=== PATIENT | female | born 1970 | race Caucasian/White ===

== ENCOUNTER → 2018-04-04 10:15 | Outpatient (CLI) | payer BC, SELFPAY ==
--- NOTE | 2018-04-04 10:15 | DT_ITS ---
This patient was seen during an EMR downtime March 31, 2018 - April 07, 2018. This patient may have a combination of paper and electronic documentation or all paper documentation. All documentation is viewable within the e-chart portion of [email or web address] for each patient visit.
[2018-04-15 16:04] LABS: HPV Reflexed? NOT INDICATED
== END ==
PROVIDERS: Visit Provider Obstetrics & Gynecology
DX: Z12.4 Encounter for screening for malignant neoplasm of cervix (principal)
CPT/HCPCS: 88175; G0145

== ENCOUNTER 2018-07-02 16:37 | Emergency (ER) | payer BC, SELFPAY ==
[2018-07-02 16:38] VITALS: BP 122/83; PULSE 102; RESP 16; TEMP 37.8; O2SAT 97; BMI 22.6
--- NOTE | 2018-07-02 16:52 | EKG12_ITS ---
Test Reason : CHEST PAIN Blood Pressure : / mmHG Vent. Rate : 100 BPM Atrial Rate : 100 BPM P-R Int : 122 ms QRS Dur : 062 ms QT Int : 332 ms P-R-T Axes : 072 063 060 degrees QTc Int : 428 ms Normal sinus rhythm Nonspecific ST abnormality Abnormal ECG Confirmed by LISSETH CHOW ([id number]), primer expeditor and drier HARPREET RODRIGES ([id number]) on 07/08/2018 1:41:10 PM Referred By: ALEXX Confirmed By:LISSETH CHOW
--- NOTE | 2018-07-02 16:54 | ED.VISSUMM ---
- ER Visit Summary Date of Service: 07/02/18 Chief Complaint: Left chest pain History of Present Illness: The patient is a 48 F sudden pain left breasts 2 PM today. Denies injuries. States burning sensation. No dyspnea, nausea, vomiting. No radicular symptoms. A week ago had electric shock feeling in her left shoulder blade. There is no chest pain at that time. No recent travel, surgeries, or immobilizations. No history of PE or DVT. No history diabetes, hypertension, hypercholesterolemia. Occasional tobacco. Family history grandfather RI older age, states her aunt of RI at age of 50. No previous similar symptoms in the past. Mild urine urgency. Mild cough. Patient has history of multiple breast cysts in the past requiring drainage followed by Dr. Mason, denies any mass or lesions of breasts. Physical Examination: General: Alert and oriented ?3, no acute distress HEENT: Normocephalic, atraumatic. Moist mucosa membranes Neck: supple, nontender. Cardiovascular: Regular rate and rhythm, no murmurs. Nursing present with breast exam the left, there is no palpable nodules or tenderness that were reproducible. Respiratory: Normal breath sounds, symmetric, no distress Abdomen: Soft, nontender, nondistended Extremities: Nontender, no edema, pulses intact ?4 Neuro: no focal neurological deficits. Test Results: EKG: Sinus rate of 100, no ST changes. T-wave flattening in aVL. Chest x-ray negative. 8 hemoglobin 13.8. Troponin negative. Creatinine 0.82. Urine essentially negative. Emergency Department Course and Treatment: She was given aspirin, cardiac workup initiated. His elevated temperature check urine there is no infection. Chest x-ray negative for infection which was reviewed by myself. Reevaluate states only mild burning sensation in the chest. There is no signs of abscess or infection skin region. Discussed with patient heart pathway guideline with the patient. She understands a 2% risk. BERE score 0. Heart scores a 2. Patient follow-up as an outpatient for testing. She return if any worsening symptoms. All questions were answered. Treatment Plan: [] Disposition: Discharge Impression: 1. Acute chest pain This note was generated with Beamingation software. It may contain incorrect words, spelling, and punctuation that were not noted in review of the chart prior to signing ED Disposition - Plan for ED Patient: Disposition: Home or Assisted Living Chief Complaint: Chest Other Diagnosis: Acute chest pain Instructions: ED Chest Pain Atypical Unkn Cause Referrals: Sea Mason III, MD [Primary Care Provider] - 2 Days
[2018-07-02 16:55] VITALS: BP 88/78; PULSE 98; RESP 17
[2018-07-02] MEDS: Aspirin 81 MG TAB.CHEW 324 MG PO (17:04)
[2018-07-02 17:06] LABS: Absolute Lymphocyte Count 2.52 X10^3/ul (0.83-4.51); Absolute Neutrophil Count 4.1 X10^3/uL (2.0-7.7); Basophil# 0.05 X10^3/uL; Basophil% 0.6 % (0-1); Eosinophil# 0.47 X10^3/uL; Hematocrit 41.3 % (37-47); Hemoglobin 13.8 g/dl (12.0-15.0); Lymphocyte # 2.52 X10^3/ul (4.0); Lymphocyte % 32.2 % (19-41); Mean Corp Hgb Conc 33.4 g/gl (32-36); Mean Corpuscular Hgb 31.9 pg (27.0-32.0); Mean Corpuscular Volume 95.4 fL (81-99); Mean Platelet Vol. 10.2 fl (6.2-12.0); Monocyte# 0.64 X10^3/uL; Monocyte% 8.2 % (0-10); Neutrophil # 4.14 X10^3/uL (2.7-7.7); Neutrophil % 52.9 % (47-70); Platelet Count 325 K/mm3 (150-450); RBC Distribution Width CV 12.7 % (11.6-14.6); RBC Distribution Width SD 44.2 fl (35.1-43.9); Red Blood Count 4.33 M/mm3 (4.2-5.4); White Blood Count 7.8 K/mm3 (4.4-11.0)
[2018-07-02 17:20] LABS: Mucous, Urine 0 SEEN /hpf (<or=2+); White Blood Cells 0 SEEN /hpf (0-5)
[2018-07-02 17:22] LABS: Anion Gap 9 (5-15); BUN 12 mg/dL (7-18); BUN/Creat Ratio 14.7 RATIO (10-20); Calcium,Total 9.1 mg/dL (8.5-10.1); Chloride 106 mmol/L (98-107); Creatinine, Serum 0.82 mg/dL (0.55-1.02); EST Glomerular Filtration Rate 79 mL/min (>60); Est Glom Filt Rate - Afr Amer 95 mL/min (>60); Glucose 75 mg/dL (74-106); Potassium 3.8 mmol/L (3.5-5.1); Sodium Level 145 mmol/L (136-145)
[2018-07-02 17:24] LABS: Color, Urine Yellow (Yellow); Glucose, Dipstick Normal (Normal); Ketone-Dipstick Negative (Negative); Leukocyte Esterase-Dipstick Negative /ul (Negative); Nitrite-Dipstick Negative (Negative); Occult Blood-Urine 25 /ul (Negative); Protein-Dipstick Negative (Negative); Specific Gravity, Urine 1.015 (1.002-1.030); Urine Bilirubin Dipstick Negative (Negative); Urine Clarity Clear (Clear); Urine Urobilinogen Normal (Normal)
[2018-07-02 17:42] LABS: POSITIVE COUNT NO; POSITIVE DIFFERENTIAL NO; POSITIVE MORPHOLOGY NO
[2018-07-02 17:59] LABS: Bacteria 1+ /hpf (None Seen); Red Blood Cells-Urine 0-5 SEEN /hpf (0-5); Squamous Epithelial Cells - UA 5-10 SEEN /hpf (5-10)
[2018-07-02 18:58] VITALS: BP 98/60; PULSE 71; RESP 15
== END 2018-07-02 19:00 | disposition home or self-care (01) ==
PROVIDERS: Emergency Provider Emergency Medicine; Family Provider Family Medicine; PCP Family Medicine
DX: R07.9 Chest pain, unspecified (principal); N64.4 Mastodynia; R05 Cough; R39.15 Urgency of urination; Z72.0 Tobacco use
CPT/HCPCS: 71046; 80048; 81001; 84484; 85025; 93005; 99284; A4216

== ENCOUNTER 2018-09-01 05:40 | Day surgery (SDC) | payer BC, SELFPAY ==
[2018-08-27 17:19] LABS: Hematocrit 42.6 % (37-47); Hemoglobin 14.3 g/dl (12.0-15.0); Mean Corp Hgb Conc 33.6 g/gl (32-36); Mean Corpuscular Volume 95.3 fL (81-99); Mean Platelet Vol. 10.2 fl (6.2-12.0); Platelet Count 376 K/mm3 (150-450); RBC Distribution Width CV 12.8 % (11.6-14.6); RBC Distribution Width SD 43.7 fl (35.1-43.9); Red Blood Count 4.47 M/mm3 (4.2-5.4); White Blood Count 7.5 K/mm3 (4.4-11.0)
[2018-08-27 17:20] LABS: Scan Indicated on CBC? Y/N NO
[2018-08-27 17:30] LABS: International Normalized Ratio 0.9; Prothrombin Time (Protime)PT. 12.6 SECONDS (11.7-14.9)
[2018-08-27 17:31] LABS: Partial Thromboplast Time 27.6 Seconds (24.1-36.2)
[2018-08-27 17:47] LABS: Creatinine, Serum 0.84 mg/dL (0.55-1.02); EST Glomerular Filtration Rate 76 mL/min (>60); Est Glom Filt Rate - Afr Amer 92 mL/min (>60)
[2018-08-27 17:58] LABS: Pregnancy, Serum, hCG Quali. NEGATIVE Negative (0-9 Nonpreg)
--- NOTE | 2018-08-31 15:54 | PCM.HP.BLA ---
History and Physical Date of Admission: 09/01/18 Surgical History and Physical Date: 08/31/2018 Name: LANI ALMAZAN Age: 48 Date of : 1970 Lani Almazan, a 48 year old female 2 1 2 0 2, presents for robotic hysterectomy and bilateral salpingoophrectomy on August at 7:30. -- Menorrhaga, Low Back Pain, Pelvic Pain -- She has had three prior C/S deliveries and has had BTO. had bleeding for several weeks after her D and C. UTERUS: 8.4 x 5.7 x 5.1 cm and is retroverted. has always had back pain but for the last several months had pain down her leg around menses. This month she has had had pain that did not go away with resolution of period. She is also having epigastric pain. She has a terrible h/a with period. Back pain which began longstanding. Lani claims it started around the time of her period and has been present years. It is located in the low back. Lani characterizes it to be down leg. Severity is worsening; Associated signs and symptoms are pain down leg. MEDICATIONS HISTORY: Patient is also takin. Flonase Allergy Relief 50 mcg/actuation nasal spray,suspension, As Directed 2. hydrochlorothiazide 12.5 mg tablet, One pill by mouth once a day as needed 3. hydroxyzine HCl 25 mg tablet, One pill by mouth once a day prn 4. Vitamin D2 50,000 unit capsule, One pill by mouth once a week ALLERGIES: Compazine, Nervous rxn, Compazine and Anxiety Infections - Chicken pox Illnesses - Meniere's Dz. Accidents - no injuries of consequence Hospitalizations - Childbirth and see surgery by ; Review of Systems: GENERAL - Denies fever, or chills SKIN - Denies skin changes EYES - Denies visual changes EARS - Denies difficulty hearing NOSE - Denies nasal congestion or bleeding MOUTH - Denies sore throat or difficulty swallowing NECK - Denies pain or swelling RESPIRATORY - Denies shortness of breath or wheezing CARDIOVASCULAR - Denies palpitations or chest pain GASTROINTESTINAL - Denies nausea, vomiting, diarrhea, constipation GENITOURINARY - Denies dysuria, frequency of urination, incontinence of urine MUSCULOSKELETAL - Denies joint or muscle pain NEUROLOGICAL - Denies localized numbness or weakness PSYCHIATRIC - Denies depression or anxiety ENDOCRINE - Denies heat or cold intolerance, weight loss or gain HEMATO-IMMUNOLOGIC - Denies excesive bleeding with cuts SOCIAL HISTORY: Alcohol Use - wine Smoking - socially Diet - balanced diet. low sodium Lifestyle - moderate stress lifestyle, active lifestyle and Exercise - active work Seat Belt Use - always Employer - [employer] Job Description - [employer] Illicit Drug Use - denies use of street drugs Sexual Activity - Hours Worked - 40 hours per week Spouse-Sig Other Name - Jl Spouse-Sig Other Occupation - Patternmaker [employer] Children Name(s) - Eligio Low Control - Prior Tubal ligation FAMILY HISTORY: Family history of DM II. Maternal Grandmother: cervical cancer.....80's. MENSTRUAL HISTORY: LMP Known?- ApproximateAmount/Duration - 2-3 days, Regularity - bleeds between periods, Frequency - variable days, LMP - 08/04/18, Age Onset Menarche - 12 PAST PREGNANCIES: Total Pregnancies - 5; Full Term Pregnancies - 2; Premature - 1; Abortions, Induced - 0; Abortions, Spontaneous - 2; Ectopics - 0; Multiple Births - 0; Living Children - 2 SURGICAL HISTORY: 1. x3 ; - 2. D and C x2 ; - SAB 3. bilateral lumps removed from breasts ; Monty Mason - benign 4. bilateral foot surgery ; - 5. ear shunt replacement 10/2006 ; - 6. 03/17/2018 left leg- spindle cell skin lesion removed ; - 7. L breast cyst, drained ; Monty Mason - Cyst 8. 12-05 left ear, stent put in in place of bone ; - 9. breast cyst removal ; - 10. 06/01/2015 hysteroscopy D and C ; Kemi Kothari M.D. - 11. 12/21/2015 Dx laparoscopy ; Kemi Kothari M.D. - PHYSICAL EXAM BP- 104/72 Sitting, Right arm, regular cuff Weight- 132.75361 lbs Height- 63.75 inch BMI:22.88 CONSTITUTIONAL - well nourished, well developed, looks like stated age and in no distress HEENT - Normocephalic, atraumatic, sclerae anicteric. EOMI. NECK - no nuchal rigidity LUNGS - clear to auscultation CARDIAC - normal s1, normal s2, no s3 BREAST - no dominant masses, no tenderness, no axillary adenopathy, no nipple discharge and no skin changes ABDOMEN - no masses, no tenderness EXTREMITIES - no nuchal rigidity NEUROLOGICAL - cranial nerves 2-12 intact PSYCHIATRIC - alert, oriented to time, place, and person, mood appropriate and affect appropriate PAP SMEAR - done External Genitial Vagina - non-tender without lesions Urethra/Urethral Meatus - non-tender Bladder - non-tender Vagina - vaginal sifuentes are pink and moist without loss of rugae and no evidence of atropy Cervix - without cervical motion tenderness and has normal size and features without evident lesions Uterus - normal size, mobile and no tenderness Adnexa - clear without massess or tenderness Rectal - deferred ASSESSMENT/PLAN: Dysmenorrhea, Excessive And Frequent Menstruation With Irregular Cycle, Lower Abdominal Pain, Unspecified and Premenopausal Menorrhagia Prior D and C with secretory endometrium only Declines hormonal contraception, medical management. Wants hysterectomy Advised may have Robotic hysterectomy OR may consider open hysterectomy (DAX) as prior c section deliveries. Advised re R,B,alternatives of both. nContact Surgical informational DVD given to read and consider. Plan robotic hysterectomy. Considering OOPHORECTOMY, but ok with bilateral salpingectomy
[2018-09-01] VITALS (18 sets, daily range): BP systolic 72–99; BP diastolic 39–57; PULSE 51–97; RESP 12–16; TEMP 35.9–36.8; O2SAT 96–100; BMI 23.4
[2018-09-01] MEDS: Acetaminophen 500 MG Tablet 1000 MG PO (06:32)
[2018-09-01] MEDS: Gabapentin 600 MG Tablet PO (06:32)
[2018-09-01] MEDS: Scopolamine 1mg/72hr Patch 1 PATCH TRANSDERM. (07:00)
--- NOTE | 2018-09-01 07:30 | HYST_PTH ---
PATIENT: LANI DUARTE LOC[place] [facility] [place][id number] AGE/SX: 48/F ROOM: RE09/01/[address]: Dr. Matias Chandler MD : 1970 BED: DIS: 09/02/2018 SPEC #: [id number] RECD: 09/01/18 11:31 STATUS: CARLITOS YUANCynthia #: [id number] TAVON: 09/01/18 07:[address]: Matias Chandler DEPT: SURGICAL PATHOLOGY RECD BY: Johnathan Lara ENTERED: 09/01/18 12:04 SP TYPE: HYSTERECT OTHR DR: Dr. Sea Mason III, MD Tissues: Uterus, NOS Procedures: Surgery Specimen Level V HEADER OPERATION: Lap robotic hysterectomy, bilateral salpingectomy, ERAS PRE-OP DIAGNOSIS: Dysmenorrhea, excessive and frequent menstruation with irregular cycle, lower abdominal pain TISSUE SUBMITTED: Uterus with bilateral fallopian tubes MICROSCOPIC DIAGNOSIS Uterus, bilateral fallopian tubes and ovaries: Cervix - chronic inflammation. Endometrium - proliferative endometrium. Myometrium - focal adenomyosis. Bilateral fallopian tubes - no pathologic diagnosis. Bilateral ovaries - endometriosis. SJ:vu 09/02/18 MICROSCOPIC DESCRIPTION Slides are reviewed. GROSS DESCRIPTION Received in fixative is one container labeled with the patient's name and designated uterus with bilateral fallopian tubes. The specimen consists of a hysterectomy specimen consisting of uterus with cervix and attached bilateral fallopian tubes and ovaries. The uterus with cervix weighs 81 gm and measures 9 x 6 x 4 cm. The serosal surface is focally ragged. The ectocervical mucosa is unremarkable. The external os is circular in contour. The endocervical canal measures 3 cm in length and the endocervical mucosa is unremarkable. The triangular endometrial cavity measures 4 cm in length and up to 2.5 cm in width. The endometrium is peace, glistening without any mass lesion and measures <0.1 cm in thickness. Sections of the uterine wall do not reveal any mass lesion and measures up to 2 cm in thickness. The right fallopian tube measures 2.5 cm in length and 0.5 cm in diameter. The fimbrial end is identified. It is interrupted in the middle consistent with previous tubal occlusion. The right ovary measures 2 x 1 x 1 cm. Sections reveal a few cysts filled with clear to hemorrhagic fluid. A peace-white nodule is noted measuring 0.5 cm in greatest dimension. No tubo-ovarian adhesions are identified. The left fallopian tube measures 2.5 cm in length and 0.5 cm in diameter. It is also interrupted in the middle consistent with previous tubal occlusion. The fimbrial end is identified. Sections reveal unremarkable cut surfaces. The left ovary measures 1 x 1 x 0.6 cm. Sections reveal unremarkable cut surfaces. Sweat Band Sewer sections are submitted in ten cassettes as follows: 1 - anterior cervix, 2 - posterior cervix, 3 & 4 - anterior uterine wall, 5 & 6 - posterior uterine wall, 7 - right fallopian tube, 8 - right ovary, 9 - left fallopian tube, 10 - left ovary. The ovaries are submitted in entirety. / SJ:rg 09/01/18 TC:5 CPT: 48638
--- NOTE | 2018-09-01 07:40 | OP.PCM_ITS ---
Operative Report Date of Procedure: 09/01/18 Surgeon: Matias Chandler MD, FACOG Inside Sales Consultant: WILLARD Vallecillo Anesthesia: Jl Gomez CRNA; Solo Chandler MD Type of anesthesia: General Endotracheal Procedure: Robotic Assisted Vaginal Hysterectomy and Bilateral Salpingoophrectomy Pre-Op: Menorrhagia, Pelvic Pain Post-Op: Menorrhagia, Pelvic Pain Findings: 8 cm fibroid uterus with normal appearing tubes and ovaries bilaterally; evidence of prior tubal ligation Indication: This is a 48 year old patient who has been having problems with extremely heavy menses and severe low back pain. She has had 3 prior sections. Conservative measures have not been helpful. The patient has been counseled regarding the risks, benefits and alternatives of this procedure including the possibility of bleeding, infection, and injury to surrounding structures such as bowel bladder and all questions were answered. She understands that she may need to be on HRT for an indefinite period of time and that this procedure may not help with her pelvic pain. Procedure: Pt taken to the operating room where after induction of general anesthesia the patient was prepped and draped in the usual sterile fashion and placed on a non-slip Huggy-u-vac device. Trendendelenburg test was satisfactory. Bladder was drained of urine with a Melo catheter which was left in place. Anterior cervix grasped and cervix was dilated to about 3-4 mm. Uterus sounded to 8 cms. 0-Vicryl suture was placed at the 3:00 and 9:00 position of the cervix. A small V-care device was then placed in the uterus to allow uterine manipulation and attention was turned to the laparoscopic portion of the procedure. Ropivocaine 0.5% was injected approximately 2-3 cm superior to the umbilicus and an 8 mm robotic camera port was introduced directly with intraperitoneal placement confirmed with insufflation. 8 mm robotic side ports were introduced under direct visualization approximately 10 cm lateral and 2 cm inferior to the umbilical port. A 5 mm left upper quadrant port was introduced and airseal insufflation with CO2 was started. The above findings were noted. Robot was docked without difficulty and attention turned to the robotic portion of the procedure. Approximately 30 cc of Ropivicaine was used. Bilateral infundibulocal ligaments were ligated with 35 weiss bipolar coagulation to the level of the round ligament. The posterior aspect of the cervix was identified and then opened for about 1 cm using 25 watt monopolar cautery identifying the V-care device which had been placed vaginally. Bladder flap was opened and divided to the level of the round ligaments using monopolar cautery. Progressive bites were then ligated on each side of the cervix with 25 weiss bipolar cautery to the uterine arteries. The anterior vaginal mucosa was then entered and cervix circumscribed with monopolar cautery. Uterus and attached ovaries and tubes were then removed through the vagina. Vaginal cuff was closed first with 0-Vicryl Zafar stitches placed at each angle followed by closure of the mid-cuff with 0-Monocryl V-lock suture in two layers. Pelvis was copiously irrigated with saline and the right and left ureters montilla noted to peristalse. Robot was undocked and trocars were removed with as much gas as possible. Incisions were closed with 4-0 Monocryl subcuticular sutures and incisions covered with steri-strips and opsite dressing. The patient tolerated the procedure well and was taken to the recovery room in satisfactory condition. Sponge, instruments and needle counts were all correct. There were no apparent complications of the surgery. Cefotan 2 gms IV was given prior to the procedure. Estimated Blood Loss: Minimal Specimen to Pathology: Uterus, bilateral fallopian tubes and ovaries
--- NOTE | 2018-09-01 07:41 | DCINST_ITS ---
Discharge Diet: No Restrictions Discharge Activity: Return to Normal Activity, May Not Drive - while taking narcotic pain medications., May Shower May resume sexual activity in: 6-8 weeks Call your doctor if your incision/area has: Continuous Slow Oozing, Sudden Increased Bleeding, Increased Pain/ Swelling, Increased Redness, Foul Smelling Discharge Call your doctor if you observe: Fever of 101 or Higher, Inability to urinate, Inability to have a bowel movement, Using more than one pad per hour Allergies/Adverse Reactions: Allergies prochlorperazine edisylate [From Compazine] Adverse Reaction (Verified 08/25/18 13:13) Other prochlorperazine maleate [From Compazine] Adverse Reaction (Verified 08/25/18 13:13) Other Medications to take at Discharge Fluticasone 0.05% [Flonase Nasal [place]] 1 spray NASAL PRN PRN 06/01/15 Ergocalciferol [Vitamin D] 50,000 unit PO Q7D 08/05/17 Hydrochlorothiazide 12.5 mg PO PRN PRN 08/25/18 Hydroxyzine HCl 25 mg PO PRN PRN 08/25/18 Docusate Sodium [Colace] 100 mg PO BID PRN PRN #60 cap 09/01/18 Estradiol 1 mg PO DAILY #100 tab 09/01/18 Oxycodone [Oxyir] 5 mg PO Q6H PRN PRN 7 Days #20 tab 09/01/18 The following prescriptions were given: Oxycodone [Oxyir] 5 mg PO Q6H PRN PRN 7 Days #20 tab PRN Reason: Severe Pain () Docusate Sodium [Colace] 100 mg PO BID PRN PRN #60 cap PRN Reason: Constipation Estradiol 1 mg PO DAILY #100 tab Primary Care Physician: Sea Mason III, MD [Primary Care Provider] - Test Results: Test results from this visit will be discussed in further detail at your follow- up appointment, if applicable. Please Follow Up With: Matias Chandler MD When: 2-3 weeks
[2018-09-01] MEDS: Lidocaine/D5W 2,000 MG/250 ML IV.SOLN 2000 MG (07:59)
[2018-09-01 08:26] LABS: Bedside Glucose 90 mg/dL (70-110)
[2018-09-01] MEDS: Ropivacaine 0.5% 30 ML Vial (09:40)
[2018-09-01] MEDS: Ondansetron 4 MG/2 ML Vial IV ×2 (10:56→19:32)
[2018-09-01] MEDS: Dextrose 5%-Lactated Ringers 1,000 ML 150 ML IV ×2 (12:41→19:35)
[2018-09-01] MEDS: HYDROmorphone 0.5 MG/0.5 ML SYRINGE IV (13:01)
[2018-09-01] MEDS: Ketorolac 30 MG/ML Syringe IV ×2 (16:00→22:51)
[2018-09-01] MEDS: Enoxaparin 30 MG/0.3 ML Syringe SC (18:05)
[2018-09-01] MEDS: 0.9% NaCl Peripheral Flush Adult/Peds IV ×2 (19:32→22:51)
[2018-09-02] MEDS: Acetaminophen 500 MG Tablet 1000 MG PO ×2 (01:48→10:18)
[2018-09-02] MEDS: Dextrose 5%-Lactated Ringers 1,000 ML 150 ML IV (01:49)
[2018-09-02 01:56] VITALS: BP 93/56; PULSE 72; RESP 16; TEMP 37.4; O2SAT 96
[2018-09-02] MEDS: 0.9% NaCl Peripheral Flush Adult/Peds IV ×2 (04:03→05:36)
[2018-09-02] MEDS: Ketorolac 30 MG/ML Syringe IV (04:03)
[2018-09-02] MEDS: Docusate Sodium 100 MG Capsule PO (05:48)
[2018-09-02 06:57] LABS: Hematocrit 34.8 % (37-47); Hemoglobin 11.5 g/dl (12.0-15.0); Mean Corpuscular Hgb 32.1 pg (27.0-32.0); Mean Corpuscular Volume 97.2 fL (81-99); Mean Platelet Vol. 10.6 fl (6.2-12.0); Platelet Count 278 K/mm3 (150-450); RBC Distribution Width CV 13.1 % (11.6-14.6); RBC Distribution Width SD 44.9 fl (35.1-43.9); Red Blood Count 3.58 M/mm3 (4.2-5.4); White Blood Count 12.7 K/mm3 (4.4-11.0)
[2018-09-02 07:02] LABS: Scan Indicated on CBC? Y/N NO
[2018-09-02 07:15] LABS: Creatinine, Serum 0.72 mg/dL (0.55-1.02); EST Glomerular Filtration Rate 91 mL/min (>60); Est Glom Filt Rate - Afr Amer 110 mL/min (>60); Estimated Creatinine Clearance 77.33 ml/min
[2018-09-02] MEDS: Estrogens,Conj. 0.625 MG Tablet PO (08:11)
[2018-09-02 08:15] VITALS: BP 90/55; PULSE 75; RESP 18; TEMP 37.1; O2SAT 97
[2018-09-02 08:25] VITALS: O2SAT 95
--- NOTE | 2018-09-02 08:47 | PCM.PN.OB ---
Subjective: Patient without complaints. Tolerating diet well. Positive flatus. Pain well controlled. - Physical Exam Vital Signs Temp Pulse Resp BP Pulse Ox 98.7 F 75 18 90/55 L 95 09/02/18 08:15 09/02/18 08:15 09/02/18 08:15 09/02/18 08:15 09/02/18 08:25 Oxygen Flow Rate (L/min) 6 Oxygen Delivery Method Room Air Weight: 132 lb 7.965 oz Body Mass Index (BMI) 23.4 Intake and Output for Last 24 Hours 08/31/18 09/01/18 09/02/18 23:59 23:59 23:59 Intake Total 5376 / 5376 1003 / 1003 Output Total 1150 / 1150 2100 / 2100 Balance 4226 / 4226 -1097 / -1097 Laboratory Tests Past 24 Hrs 09/02/18 09/02/18 06:07 06:07 WBC 12.7 H RBC 3.58 L Hgb 11.5 L Hct 34.8 L MCV 97.2 MCH 32.1 H MCHC 33.0 RDW 13.1 RDW Differential 44.9 H Plt Count 278 MPV 10.6 Creatinine 0.72 Estim Creat Clear Calc 77.33 Est GFR (MDRD) Af Amer 110 Est GFR (MDRD) Non-Af 91 Wounds are clean, dry, intact. Good urine output. Hemoglobin and creatinine okay. Minimal vaginal bleeding Medical Necessity - Tobacco Use Smoking Status: Current some day smoker Tobacco Use: Cigarettes Assessment/Plan Doing well status post RAVH/BSO on postoperative day #1. Will release to home with routine instructions.
== END 2018-09-02 11:30 | disposition home or self-care (01) ==
LOC: SDC 05:41 → AC 05:41 → MS3 08:54
PROVIDERS: Family Provider Family Medicine; PCP Family Medicine; Referring Provider Obstetrics & Gynecology; Visit Provider Obstetrics & Gynecology
PROC: 0UT90ZZ Resection of Uterus, Open Approach (ICD-10-PCS; CPT 58552; principal; 2018-09-01 07:10)
DX: N72 Inflammatory disease of cervix uteri (principal); N80.0 Endometriosis of uterus; R10.2 Pelvic and perineal pain; K21.9 Gastro-esophageal reflux disease without esophagitis; F17.210 Nicotine dependence, cigarettes, uncomplicated; F41.9 Anxiety disorder, unspecified; Z79.899 Other long term (current) drug therapy; Z85.828 Personal history of other malignant neoplasm of skin; Z98.51 Tubal ligation status
CPT/HCPCS: 00840; 58552; S2900; 36415; 82565; 82962; 84703; 85027; 85610; 85730; 86850; 86900; 88307; 99406; J7050; J7120; A4216; J0330; J2405

== ENCOUNTER → 2019-09-29 11:48 | Outpatient (CLI) | payer BC, SELFPAY ==
[2019-09-29 10:45] VITALS: BMI 24.8
[2019-09-29 12:17] LABS: Erythrocyte Sedimentation Rate 6 mm/hr (0-30)
[2019-09-29 12:20] LABS: Absolute Lymphocyte Count 1.78 X10^3/uL (0.83-4.51); Absolute Neutrophil Count 5.4 X10^3/uL (2.0-7.7); Basophil# 0.05 X10^3/uL; Basophil% 0.6 % (0-1); Eosinophil# 0.24 X10^3/uL; Eosinophils% 2.9 % (0-5); Hematocrit 43.3 % (37-47); Hemoglobin 14.6 g/dL (12.0-15.0); Lymphocyte # 1.78 X10^3/ul (4.0); Lymphocyte % 21.7 % (19-41); Mean Corp Hgb Conc 33.7 g/dL (32-36); Mean Corpuscular Hgb 32.4 pg (27.0-32.0); Mean Platelet Vol. 9.9 fl (6.2-12.0); Monocyte# 0.72 X10^3/uL; Monocyte% 8.8 % (0-10); NRBC Flagged by Analyzer 0 % (0-5); Neutrophil # 5.41 X10^3/uL (2.7-7.7); Neutrophil % 65.8 % (47-70); Platelet Count 425 K/mm3 (150-450); RBC Distribution Width CV 12.9 % (11.6-14.6); RBC Distribution Width SD 46.1 fl (35.1-43.9); Red Blood Count 4.51 M/mm3 (4.2-5.4); White Blood Count 8.2 K/mm3 (4.4-11.0)
[2019-09-29 13:44] LABS: Estradiol < 11.0 pg/mL; Follicle Stimulating Hormone 98.8 mIU/mL; Free T3 3.4 pg/mL (2.18-3.98); Luteinizing Hormone 46.6 mIU/mL; Rheumatoid Factor < 10.0 IU/mL (<15); T4 Free Direct 1.04 ng/dL (0.76-1.46); Thyroid Stim Hormone (TSH) 2.83 uIU/mL (0.358-3.74)
[2019-10-02 12:10] LABS: Dopamine, Pl 38 pg/mL (0-48); Epinephrine, Pl 38 pg/mL (0-62); Norepinephrine, Pl 696 pg/mL (0-874); Testosterone, % Free 1.22 % (0.50-2.80); Testosterone, Free 0.31 ng/dL (0.10-0.85); Testosterone, Total 25 ng/dL (3-41)
[2019-10-02 15:38] LABS: Thyroid Peroxidase AB 14 IU/mL (0-34)
== END ==
PROVIDERS: Family Provider Family Medicine; PCP Family Medicine; Referring Provider Internal Medicine Endocrinology, Diabetes & Metabolism; Visit Provider Internal Medicine Endocrinology, Diabetes & Metabolism
DX: M19.90 Unspecified osteoarthritis, unspecified site (principal); R00.0 Tachycardia, unspecified; R23.2 Flushing; E55.9 Vitamin D deficiency, unspecified
CPT/HCPCS: 36415; 82306; 82384; 82533; 82670; 83001; 83002; 84402; 84403; 84439; 84443; 84481; 85025; 85652; 86038; 86376; 86431

== ENCOUNTER → 2019-11-13 16:05 | Outpatient (CLI) | payer BC, SELFPAY ==
[2019-09-29 10:45] VITALS: BMI 24.8
[2019-11-13 17:42] LABS: Progesterone Level 0.21 ng/mL (See Comment)
[2019-11-17 09:21] LABS: Sex Hormone-binding Globulin 131.7 nmol/L (17.3-125.0)
== END ==
PROVIDERS: Visit Provider Obstetrics & Gynecology
DX: N95.1 Menopausal and female climacteric states (principal)
CPT/HCPCS: 36415; 82627; 84144; 84270; 84403; 82626

== ENCOUNTER → 2019-11-17 15:44 | Outpatient (CLI) | payer BC, SELFPAY ==
[2019-09-29 10:45] VITALS: BMI 24.8
--- NOTE | 2019-11-17 15:53 | BD_ITS ---
STUDY: DUAL ENERGY X-RAY ABSORPTIOMETRY / DXA REASON FOR EXAM: Female, 49 years old. 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 COMPARISON: None. FINDINGS: Lumbar Spine (L1-L4): g/cm2 (1.070) / T-score (-0.9) / Z-score (-0.4) Findings are suggestive of normal bone density with a low fracture risk. Left Femur Total: g/cm2 (0.803) / T-score (-1.6) / Z-score (-1.1) Left Femoral Neck: g/cm2 (0.820) / T-score (-1.6) / Z-score (-0.7) Right Femur Total: g/cm2 (0.777) / T-score (-1.8) / Z-score (-1.3) Right Femoral Neck: g/cm2 (0.770) / T-score (-1.9) / Z-score (-1.1) BD/Dexa Bone Density Study IMPRESSION: The patient is considered osteopenic as outlined below according to World Shaw Organization (WHO) criteria with a moderate fracture risk. Reference Information: The T-score is the number of standard deviations above or below the standard which is normal for young adults at their peak bone mineral density. The World Health Organization (WHO) interprets the T-scores as follows: Above -1 Normal bone density Between -1 and -2.5 Osteopenia Equal to / or below -2.5 Osteoporosis As a practical clinical guideline, osteopenia may be graded as follows: Mild -1 through -1.5 Moderate -1.6 through -2.0 Severe -2.1 through -2.4 The Z-score is the number of standard deviations above or below age-matched controls. A Z-score of less than -1.5 would be considered abnormal. References: 1. NIH Osteoporosis and Related Bone Diseases http://www.osteo.org 2. International Society for Clinical Densitometry http://www.iscd.org 3. National Osteoporosis Foundation http://www.nof.org Electronically Signed: Sebastian Brewer, at 14:11 EST , Service support ,
== END ==
PROVIDERS: Family Provider Family Medicine; PCP Family Medicine; Referring Provider Internal Medicine Endocrinology, Diabetes & Metabolism; Visit Provider Internal Medicine Endocrinology, Diabetes & Metabolism
DX: Z78.0 Asymptomatic menopausal state (principal); M85.80 Other specified disorders of bone density and structure, unspecified site
CPT/HCPCS: 77080

== ENCOUNTER → 2019-12-15 08:48 | Outpatient (CLI) | payer BC, SELFPAY ==
[2019-12-11 13:52] VITALS: BMI 24.8
[2019-12-15 11:02] LABS: CRP, High Sensitivity Cardiac 1.53 mg/L; Cholesterol 221 mg/dL (200); High Density Lipoprotein 71 mg/dL; Triglycerides 65 mg/dL; Very Low Density Lipoprotein 13 mg/dL (5-40)
[2019-12-15 11:29] LABS: Free T3 3.3 pg/mL (2.18-3.98); T4 Free Direct 1.07 ng/dL (0.76-1.46)
[2019-12-16 20:07] LABS: DHEA Sulfate 177.6 ug/dL (41.2-243.7)
== END ==
PROVIDERS: Internal Medicine Endocrinology, Diabetes & Metabolism; Visit Provider Obstetrics & Gynecology
DX: Z13.6 Encounter for screening for cardiovascular disorders (principal); Z13.9 Encounter for screening, unspecified; N95.1 Menopausal and female climacteric states
CPT/HCPCS: 36415; 80061; 82627; 82670; 84402; 84439; 84481; 86141; 82626

== ENCOUNTER → 2020-04-06 11:45 | Outpatient (CLI) | payer BC, SELFPAY ==
[2019-12-11 13:52] VITALS: BMI 24.8
--- NOTE | 2020-04-06 11:47 | BI_ITS ---
MAMMOGRAPHY - BILATERAL SCREENING REASON FOR EXAM: Female, 49 years old. Routine annual screening examination. PERTINENT HISTORY: Non-contributory. Bilateral excisional breast biopsies. TECHNIQUE: Digital bilateral breast sarah (3D mammographic acquisition) in the CC and MLO projections. 2-D mediolateral oblique (MLO) and craniocaudad (CC) views of both breasts were obtained. CAD: Full Field Digital Mammography with Computer Added Detection was performed. COMPARISON: Comparison is made with prior examination dated August 16, 2017 and September 09, 2014. FINDINGS: Breast Composition: The breasts are extremely dense, which lowers the sensitivity of mammography. The previously seen dominant nodular densities in the left breast have almost completely resolved. A residual 1.5 cm by 1.5 cm well-defined nodule is seen in the upper lateral portion of the breast. Interval decrease in size of the previously seen left breast nodules as well in keeping with prior cysts. A tissue clip marker is once again seen in the medial retroareolar region of the left breast. Stable small bilateral benign-appearing axillary lymph nodes. No other significant abnormalities are identified. BI/SCREEN MAMM (CAD) W/SARAH BILAT IMPRESSION: Stable bilateral screening mammogram. Yearly follow-up mammogram recommended. (A) ASSESSMENT CATEGORY: BIRADS Category 2: Benign. A letter regarding these results will be sent to the patient by the facility within 30 days. Approximately 10% of breast cancers are not detected by mammography. A normal mammogram should not delay biopsy of a clinically suspicious abnormality. [id number] Electronically Signed: Sebastian Brewer, at 13:15 EDT , Service support ,
--- OUTSIDE RECORDS SUMMARY | 2020-08-14 11:03 | XMS RPT_ITS | CCD ---
:1970 External Reference #:[id number] Author Organization [facility] Care Team Providers Name Role Phone Jeri Mason MD Unavailable Concetta Mijares Unavailable Unavailable Nellie Seymour Unavailable Unavailable Concetta Mijares Unavailable Unavailable Allergies Reported Allergen Reaction(s) Severity Date of Onset Location prochlorperazine Mild, Mild 07-17-2017 - [facility] ([id number]) Medications Medication Name Sig Date Prescriber Location POLYETHYLENE GLYCOL GOLYTELY 227.1 GM 07-17-2017 Mora Velásquezufman [facility] Surgical 3350 / Potassium SOLR as directed [facility] ([id number]) Chloride / Sodium PEG Bicarbonate / Sodium 0645-QEV-JVSEO-NACL Chloride / sodium -NASULF [id number] sulfate Monty Mason MD GOLYTELY 227.1 GM SOLR as directed 07-17-2017 Moramoises meier [facility] PEG [facility] (4469 1) [id number] Monty Mason MD GOLYTELY 227.1 GM SOLR as directed 07-17-2017 Morayolanda meier [facility] PEG [facility] (4469 1) [id number] Monty Mason MD Problems Active Problems Category Problem Name Status Date Location Esophageal disorders Gastroesophageal reflux Active [address] [place] [address] [facility] disease [facility] (901 81) Mood disorders Mixed anxiety and Active 07-17-2017 [facility] ical depressive disorder [facility] es (15099) Unclassified Procedure carried out on Active 07-17-2017 - [facility] Surgical subject [facility] (086 29) Past or Other Problems Category Problem Name Status Date Location Abdominal pain Abdominal pain Completed 07-17-2017 - [facility] (815 26) Nonmalignant breast Cyst of breast Completed 07-17-2017 - [facility] (474 53) Other gastrointestinal Constipation Completed 07-17-2017 [facility] S urgical disorders Associates (443 40) Other gastrointestinal Abdominal bloating Completed 07-17-2017 [facility] Surgical disorders [facility] (866 64) Spondylosis; Backache Completed 07-17-2017 [facility] Surgical intervertebral disc Associ[facility] es (61459) disorders; other back problems Unclassified Encounter for other Completed 07-17-2017 [facility] Surg ical screening for Associates (98 715) malignant neoplasm of breast Results Result Name Value Range Unit Interpretation Flag Date Location progress on 2020-03 PROGRESS HNO ID: [id number] Normal 04-06-2020 [facility] Author: Sea Mason III [facility] ([id number]) Service: ? Author Type: Physician Type: Progress Notes Filed: 04/06/2020 9:55 AM Note Text: SUBJECTIVE: This is a 49 year old female that is here today for 1. anxiety on lexapro, doing well. 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 Rahul ne at home when at work. Current Outpatient Medications on File Prior to Visit Medication Sig - estradiol - REMOVE PATCH 1 Each every Saturday. - escitalopram oxalate (LEXAPRO) 10 mg tablet Take 1 tablet by mouth once daily. - hydrOXYzine HCl (ATARAX) 25 mg tablet Take 1-2 tablets by mouth every 6 hours as needed for Itching/Rash or Anxiety. - fluticasone (FLONASE) 50 mcg/actuation nasal spray Use 1 S pray in each nostril daily at bedtime. Use as directed. - CALCIUM CARB/MAGNESIUM HYDROX (ROLAIDS EXTRA STRENGTH ORAL ) Take by mouth. - aspirin 81 mg chewable tablet Take 1 tablet by mouth once daily. (Patient not taking: Reported on 04/06/2020 ) - cholecalciferol, Vitamin D3, (VITAMIN D3) 50,000 unit cap capsule Take 1 capsule by mouth as directed. Every other week. (Patient not taking: Reported on 04/06/2020 ) - ranitidine (ZANTAC) 150 mg tablet Take 150 mg by mouth twi ce daily. No current facility-administered medications on file prior t o visit. PAST MEDICAL HISTORY Diagnosis Date - Anxiety and depression 03/03/2015 - Arthralgia of bilateral temporomandibular joint - Hearing loss of right ear - Meniere disease 2005 R ear surgery 2004 - Vitamin D deficiency 09/07/2013 FAMILY HISTORY Problem Relation Age of Onset - other (mitral valve prolapse) Mother - None Father - Diabetes Paternal Grandmother in her 80's - None Sister - Heart Brother - other (thyroid issues) Daughter Social History Tobacco Use - Smoking status: Light Tobacco Smoker - Smokeless tobacco: Never Used - Tobacco comment: smokes once in a blue francis Substance Use Topics - Alcohol use: No - Drug use: No BP 100/71 Pulse 76 Resp 16 Wt 62.1 kg (137 lb) LMP 1 BMI 23.89 kg/m? OBJECTIVE: APPEARANCE Well appearing, alert, in no acute distress, well -hydrated, well nourished. EXTREMITIES Extremities normal, No deformities, No skin disc oloration, No edema and Normal pulses bilaterally. Appearance: well dressed well groomed, cooperative and pleas ant Behavior: good eye contact Speech: fluent and coherent Mood: euthymic Affect: appropriate Perceptions: none Thought process: goal directed Thought Content: normal Intelligence level: normal Insight: good Judgment: good ASSESSMENT: anxiety PLAN: increase lexapro 20 mg daily healthy diet and regular exercise same medications 25 min TRINI Wolff MD on 2020-04-06 CNOV Office Visit (FAMPWS) Normal 04-06-20 [facility] LANI ALMAZAN ([id number]) 1970 F [facility] Date Time Provider Department ([id number]) 04/06/20 9:20 AM SEA MASON III During your visit today, we recorded the following informati on about you: Pulse Respiration Blood pressure Weight 76/minute 16/minute 100/71 62.1 kg Sea Mason III MD 04/06/2020 9:55 AM Signed SUBJECTIVE: This is a 49 year old female that is here today for 1. anxiety on lexapro, doing well. 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 Alone at home when at work. Current Outpatient Medications on File Prior to Visit Medication Sig - estradiol - REMOVE PATCH 1 Each every Saturday. - escitalopram oxalate (LEXAPRO) 10 mg tablet Take 1 tablet by mouth once daily. - hydrOXYzine HCl (ATARAX) 2 5 mg tablet Take 1-2 tablets by mouth every 6 hours as needed for Itching/Rash or Anxiety. - fluticasone (FLONASE) 50 mcg/actuation nasal spray Use 1 S pray in each nostril daily at bedtime. Use as directed. - CALCIUM CARB/MAGNESIUM HYDROX (ROLAIDS EXTRA STRENGT H ORAL) Take by mouth. - aspirin 81 mg chewable tab let Take 1 tablet by mouth once daily. (Patient not taking: Reported on 04/06/2020 ) - cholecalciferol, Vitamin D3, (VITAMIN D3) 50,000 unit cap capsule Take 1 capsule by mouth as directed. Every other week. (Patient not taking: Reported on 04/06/2020 ) - ranitidine (ZANTAC) 150 mg tablet Take 150 mg by mouth twi ce daily. No current facility-administered medications on file prior t o visit. PAST MEDICAL HISTORY Diagnosis Date - Anxiety and depression 03/03/2015 - Arthralgia of bilateral temporomandibular joint - Hearing loss of right ear - Meniere disease 2004 R ear surgery 2004 - Vitamin D deficiency 09/07/2013 FAMILY HISTORY Problem Relation Age of Onset - other (mitral valve prolapse) Mother - None Father - Diabetes Paternal Grandmother in her 80's - None Sister - Heart Brother - other (thyroid issues) Daughter Social History Tobacco Use - Smoking status: Light Tobacco Smoker - Smokeless tobacco: Never Used - Tobacco comment: smokes once in a blue francis Substance Use Topics - Alcohol use: No - Drug use: No BP 100/71 Pulse 76 Resp 16 Wt 62.1 kg (137 lb) LMP 1 BMI 23.89 kg/m? OBJECTIVE: APPEARANCE Well appearing, alert, in no acute distress, we ll-hydrated, well nourished. EXTREMITIES Extremities norm al, No deformities, No skin discoloration, No edema and Normal pulses bilaterally. Appearance: well dressed well groomed, cooperative and pleas ant Behavior: good eye contact Speech: fluent and coherent Mood: euthymic Affect: appropriate Perceptions: none Thought process: goal directed Thought Content: normal Intelligence level: normal Insight: good Judgment: good ASSESSMENT: anxiety PLAN: increase lexapro 20 mg daily healthy diet and regular exercise same medications 25 min TRINI Wolff MD, III MD 04/06/2020 9:53 AM Signed PLAN: increase lexapro 20 mg daily healthy diet and regular exercise same medications Sea Mason III MD Referring Provider: SELF [[id number]] Allergies As of Date: 04/06/2020 Noted Allergy Reaction COMPAZINE (PROCHLORPERAZINE EDISY*07/25/2005 VICODIN (HYDROCODONE-ACETAMINOPHE*05/06/2009 11 - Vomiting Comments: GI upset Date Reviewed: 04/06/2020 Reviewed by: Kathi ([facility]) MARIBEL Hairston - Fully Assessed Reason for Visit: Anxiety [9] Primary Visit Diagnosis:Anxiety and depression [F41.9, F32.9 ] Order(s):escitalopram oxalate (LEXAPRO) 20 mg tabletTake 1 t ablet by mouth once daily.Disp: 30 tabletRfl: 11 fluticasone (FLONASE) 50 mcg/actuation nasal sprayUse 1 Spra y in each nostril daily at bedtime. Use as directed.Disp: 1 BottleRfl: 12 Prescriptions as of 04/06/2020 Sig: RX ESTROGEN - REMOVE PATCH (O* 1 Each every Saturday. FLUTICASONE PROPIONATE 50 MCG* Use 1 Clemons in each nostril d * ROLAIDS EXTRA STRENGTH ORAL Take by mouth. ESCITALOPRAM 20 MG TABLET Take 1 tablet by mouth once d* CHOLECALCIFEROL (VITAMIN D3) * Take 1 capsule by mouth as di * Patient not taking: Reported on 04/06/2020 RANITIDINE 150 MG TABLET Take 150 mg by mouth twice da* Problem List As Of Date 04/06/2020 Noted Resolved MENIERE'S DISEASE NOS [H81.09] 12/23/2008 Breast cyst [N60.09] 07/19/2009 08/23/2014 Actinic Keratoses: Premalignant AK's (Bowenoid *03/01/2012 Solar lentigines [L81.4] 03/01/2012 Melanocytic nevi of upper extremity or shoulder*03/01/2012 Melanocytic nevus of lower extremity [D22.70] 03/01/2012 Actinic skin damage [L57.8] 03/01/2012 Abnormal mammogram, unspecified [R92.8] 06/23/2012 4 Vitamin D deficiency [E55.9] 09/07/2013 Fibrocystic breast [N60.19] 09/14/2014 Anxiety and depression [F41.9, F32.9] 03/03/2015 Other instructions from your clinician: PLAN: increase lexapro 20 mg daily healthy diet and regular exercise same medications Sea Mason III MD Prescriptions ordered this encounter Disp Refills Start End ESCITALOPRAM 20 MG TABLET 30 t* 11 04/06/2020 Cmt: dose increase Route: ORAL Sig: Take 1 tablet by mouth once daily. FLUTICASONE PROPIONATE 50 MCG/ACTUAT* 1 Rajendra* 12 04/06/2020 Route: EACH NOSTRIL Sig: Use 1 Clemons in each nostril daily at bedtime. Use as di rected. Medications Discontinued During This Encounter escitalopram oxalate (LEXAPRO) 10 mg* 03/28/2020 04/06/2020 Class: Med Update Route: ORAL Sig: Take 1 tablet by mouth once daily. Disc: Dosage adjustment hydrOXYzine HCl (ATARAX) 25 mg tablet 30 t* 1 03/03/20202019 Route: ORAL Sig: Take 1-2 tablets by joseph th every 6 hours as needed for Itching/Rash or Anxiety. Disc: Course of therapy completed fluticasone (FLONASE) 50 mcg/actuati* 1 Rajendra* 12 07/04/201804/06 Route: EACH NOSTRIL Sig: Use 1 Clemons in each nostril daily at bedtime. Use as di rected. Disc: Reason for discontinue is not on file. aspirin 81 mg chewable tablet 11/03/2018 04/06/2020 Class: OTC Route: ORAL Sig: Take 1 tablet by mouth once daily. Patient not taking: Reported on 04/06/2020 Disc: Course of therapy completed Encounter Status:Closed by SEA MASON III, MD on 04/06/20 greer on 2020-03-28 YUNIORN Telephone (FAMPWS) Normal 03-28-2020 [facility] RULE,LANI Regina ([id number]) 1970 F [facility] Date Time Provider Department ([id number]) 03/28/20 SEA MASON III During your visit today, we recorded the following informati on about you: Maria D Boles CHECO 03/28/2020 11:03 AM Signed Pt calls to report that she was not sleeping well and anxiet y was high. Pt reports she had a bottle of lexapro 10 m g that Isabel Claire CNP had prescribed her and decided to try it. Pt reports it was prescribed in 2017 and at that time she did not want to take it. Pt reports she is feeling much better on lexapro 10 mg and is sleeping. Pt is asking if she can be seen in office to discuss this and to get a new rx. Pt reports she lives in [place], [place] but drives back here for appts and has a mammogram at [facility] on 04/06 @ 12:00. Pt is asking if she can be seen that day by pcp. Please review and advise. Maria D Mason III MD 03/28/2020 1:10 PM Signed Yes--I am willing to see her on that day. TRINI Wolff MD, CMA, MA 03/28/2020 1:24 PM Signed Please assist patient with scheduling an office visit on 04/06 in the morning with PCP. Thank you. JAXSON Chapman LPN 03/29/2020 9:30 AM Signed Spoke with pt. Appt scheduled. Maria D Boles LPN Allergies As of Date: 03/28/2020 Noted Allergy Reaction COMPAZINE (PROCHLORPERAZINE EDISY*07/25/2005 VICODIN (HYDROCODONE-ACETAMINOPHE*05/06/2009 11 - Vomiting Comments: GI upset Date Reviewed: 07/04/2018 Reviewed by: Felisa Calvin LPN - Fully Assessed Reason for Visit: Medication Request [138] Order(s):escitalopram oxalate (LEXAPRO) 10 mg tabletTake 1 t ablet by mouth once daily.Disp: Rfl: Prescriptions as of 03/28/2020 Sig: ESCITALOPRAM 10 MG TABLET Take 1 tablet by mouth once d* HYDROXYZINE HCL 25 MG TABLET Take 1-2 tablets by mouth jaime* ASPIRIN 81 MG CHEWABLE TABLET Take 1 tablet by mouth once d* FLUTICASONE PROPIONATE 50 MCG* Use 1 Clemons in each nostril d * CHOLECALCIFEROL (VITAMIN D3) * Take 1 capsule by mouth as di * RANITIDINE 150 MG TABLET Take 150 mg by mouth twice da* ROLAIDS EXTRA STRENGTH ORAL Take by mouth. Problem List As Of Date 03/28/2020 Noted Resolved MENIERE'S DISEASE NOS [H81.09] 12/23/2008 Breast cyst [N60.09] 07/19/2009 08/23/2014 Actinic Keratoses: Premalignant AK's (Bowenoid *03/01/2012 Solar lentigines [L81.4] 03/01/2012 Melanocytic nevi of upper extremity or shoulder*03/01/2012 Melanocytic nevus of lower extremity [D22.70] 03/01/2012 Actinic skin damage [L57.8] 03/01/2012 Abnormal mammogram, unspecified [R92.8] 06/23/2012 4 Vitamin D deficiency [E55.9] 09/07/2013 Fibrocystic breast [N60.19] 09/14/2014 Anxiety and depression [F41.9, F32.9] 03/03/2015 Prescriptions ordered this encounter Disp Refills Start End ESCITALOPRAM 10 MG TABLET 03/28/2020 Class: Med Update Route: ORAL Sig: Take 1 tablet by mouth once daily. Encounter Status:Closed by MARIA D BOLES LPN on 03/29/20 progress on 2020-02 PROGRESS HNO ID: [id number] Normal 03-03-2020 [facility] Author: Felisa Calvin LPN [place] ([id number]) Service: ? Author Type: ? Type: Progress Notes Filed: 03/03/2020 4:11 PM Note Text: PRIMARY CARE QUALITY CHECK PCC Action/FYI: Patient does mammograms through [facility] and has appt 03/28 . Advised to have report sent to PCP. Patient declines office visit at this time. Patient lives near [place] and feels she is well. Is requesti ng a refill of hydroxyzine as she has just finished her last pill. Kenan nt advised provider may not fill since last office with with Isabel singh was 2018. Patient still declines office visit. Would like rx to go to [facility] and she will edge inker uppers when she's back in [place]. Óscar l patient only if problem. Abelardojacqui Regina Calvin LPN Patient identified by name and ? Yes REASON FOR CALL: Mammogram: Yes Colonoscopy: No Patient Decision Point *Patient States No Longer Seeing this PCP: - Update with new PCP Name or NO PCP in PCP Field - If appointment is needed with PCP as they have not been se en in one year or morea Send to [facility] for scheduling. a [facility] Pool [id number] *Patient Agrees to schedule Colonoscopy: - Which location does patient prefer? o [facility] o [facility] o If patient requests other non [facility] location, p end order, document which location they would like, and route to PCP. - Does patient have a valid colonoscopy order in [facility]? No. o If yes, Inform patient a dental scheduler will call them, route e ncounter to the [facility] Pool #[id number] with clear message that order is in place and patient needs scheduled. o If No: - Pend order for colonoscopy only (screening or diagnostic) (if at [facility]) and route to PCP provider o [facility] ? Pend colonoscopy order only. The [facility] will pend order for appropriate prep. o [facility] ? Only order colonoscopy screening / diagnos tic. Endoscopist will order the prep. - Inform patient: ?You will [facility] a dental scheduler [facility]. If you do not hear from a dental scheduler in 1 week, please contac t our office to let us know? by calling [phone]. *Patient States they have had colonoscopy at another non- location: - Ask patient to call that health care provider to have dafne rds released to [facility] OR - Patients may go to [facility].org and click on medica l records to release records from other facilities. *Patient Refuses Colonoscopy: - ?The other option is to complete a stool test at home call ed the IFOBT test-which would be done yearly or Cologuard test-which woul d be done every 3 years. We can mail you this test, you will complete it at home, and mail it back in the provided mailing envelope. Your PCP will contact you with the results.? o Patient Agrees a ? IFOBT- We will pend an order for your PCP to review and ap prove- Once approved we will mail the iFOBT test to you. You will comple te this test at home and mail back to us in the provided mailing envelope . Your PCP office will contact you with your results. ? Cologuard- We will pend an order for your PCP to review an d approve- Once approved the Cologuard resident programs assistant will mail your test kit to you with instructions on completing the test and the return of y our sample . We recommend that you check with your Insurance Provider reg arding coverage for this test. ? ?What date works for you to complete this test by? I will create a reminder on my calendar to check back on results? - Route encounter to PCP with pended IFOBT-Cologuard order *Patient Refuses both colonoscopy AND IFOBT -Cologuard: - Document that patient refuses both colonoscopy, IFOBT-[place] guard and/or Mammogram and route encounter to PCP to defer patient for 1 year. Leave encounter open for PCP to follow up. - Attempt to schedule an appointment with PCP to discuss HM testing. *Patient Agrees to schedule Mammogram: Patient will be scheduled with Jacob La. - Patient has current valid mammogram order in [facility] a Perfor m a three way conference call with patient on the line and connect to [facility] Scheduling at [phone] - Patient has NO current valid order a Pend order for mammog katie (screening or diagnostic) a Tell patient to call Jacob john at [phone] in 3 days to schedule appointment a route to P provider Closing: ?Thank you for your time today. As we close, I would like to review your demographic information and tell you about MyChart. MyChart is a secure health management tool that you can use to contact your doct or, request prescription renewals, access your test results, and make yo ur appointments. It is a great tool. May I launch a [employer] sig n up for you today?? Tasks to complete during phone call: o Verify PCP o Update Demographics a Phone numbers / Address / Email o Offer and Sign up Patient for Message Systemshart cnptogBox on CNPTOUTREA Patient Outreach (FAMPWS) Normal 0 03-03-2020 [facility] RULE,LANI Roman ([id number]) 1970 [place] [facility] Date Time Provider Department ([id number]) 03/03/20 [facility] your visit today, we recorded the following informati on about you: Felisa Calvin LPN 03/03/2020 4:11 PM Signed PRIMARY CARE QUALITY CHECK PCC Action/FYI: Patient does mammograms through [facility] and has ap pt 04/06/20. Advised to have report sent to PCP. Patient declines office visit at this time. Patient lives near [place] and feels she is well. Is requesting a refill of hydroxyzine as she has just finished her last pill. Patient advised provider may not fill since last office with with Isabel Claire was 2018. Patient [address] jacqui declines office visit. [facility] and she will edge inker uppers when she's back in [place]. Call patient only if problem. Felisa Calvin LPN Patient identified by name and ? Yes REASON FOR CALL: Mammogram: Yes Colonoscopy: No Patient Decision Point *Patient States No Longer Seeing this PCP: - Update with new PCP Name or NO PCP in PCP Field - If appointment is needed with PCP as they have not been seen in one year or morea Send to PSS for scheduling. regina [facility] [place] [id number] *Patient Agrees to schedule Colonoscopy: - Which location does patient prefer? o [facility] o [facility] o If patient requests other non [facility] location, pend order, document which location they would like, and route to PCP. - Does patient have a valid colonoscopy order in [facility]? No. o If yes, Inform patient a dental scheduler will call them, route encounter to the [facility] Toña l #[id number] with clear message that order is in place and patient needs scheduled. o If No: - Pend order for colonoscopy only (screening or diagnostic) (if at [facility]) and route to PCP provider o [facility] ? Pend colon oscopy order only. The appointment center will pend order for appropriate prep. o [facility] ? Only order colonoscopy screening / d iagnostic. Endoscopist will order the prep. - Inform patient: ?You will hear from a schedule r in approximately 1 week. If you do not hear from a sched uler in 1 week, please contact our office to let us know? by calling [phone]. *Patient States they have had colonoscopy at another non- location: - Ask patient to call that health care provider to have re cords released to [facility] OR - Patients may go to [email or web address].org and click on [email or web address] records to release records from other facilities. *Patient Refuses Colonoscopy: - ?The other option is to complete a stool test at home call ed the IFOBT test-which would be done yearly or Cologuard homer t-which would be done every 3 years. We can mail you this test, you will complete it at home, and mail it back in the provided mailing envelope. Your PCP will contact you with the results.? o Patient Agrees a ? IFOBT- We will pend an order for your PCP to review and ap prove- Once approved we will mail the iFOBT test to you. You will comp lete this test at home and mail back to us in the provided mailing envelope. Your PCP office will contact you with your results. ? Cologuard- We will pend an order for your PCP to review and approve- Once approved the Cologuard resident programs assistant will mail your test kit to you with instructions on completing the test and the return of your s ample . We recommend that you check with your Insurance Provider regarding coverage for this test. ? ?What date works for you to complete this test by? I will create a reminder on my calendar to check back on results? - Route encounter to PCP with pended IFOBT-Cologuard order *Patient Refuses both colonoscopy AND IFOBT -Cologuard: - Document that patient refuses both colonoscopy, IFOBT-[place] guard and/or Mammogram and route encounter to PCP to defer patient for 1 year. Leave encounter open for PCP to follow up. - Attempt to schedule an appointment with PCP to discuss HM testing. *Patient Agrees to schedule Mammogram: Patient will be scheduled with [facility]. - Patient has current valid mammogram order in [facility] a Perfor m a three way conference call with patient on the line and connect to [facility] Scheduling at [phone] - Patient has NO current valid order a Pend orde r for mammogram (screening or diagnostic) a Tell patient to call [employer] Scheduling at [phone] in 3 days to schedule appointment a route to PCP provider Closing: ?Thank you for your time today. As we close, I would like to review your demographic information and tell you abo ut [employer]. [employer] is a secure health management tool that you can use to contact your doctor, request prescription renewals, access your test results, and make you r appointments. It is a great tool. May I launch a [employer] sign up for you today?? Tasks to complete during phone call: o Verify PCP o Update Demographics a Phone numbers / Address / Email o Offer and Sign up Patient for [employer] Allergies As of Date: 03/03/2020 Noted Allergy Reaction COMPAZINE (PROCHLORPERAZINE EDISY*07/25/2005 VICODIN (HYDROCODONE-ACETAMINOPHE*05/06/2009 11 - Vomiting Comments: GI upset Date Reviewed: 07/04/2018 Reviewed by: Felisa Calvin LPN - Fully Assessed Reason for Visit: PHMA/Care Gap Outreach [[id number]] Cmt: mammogram Visit Diagnosis:Anxiety and depression [F41.9, F32.9] Order(s):hydrOXYzine HCl (ATARAX) 25 mg tabletTa ke 1-2 tablets by mouth every 6 hours as needed for Itching/Rash or Anxiety.Disp: 30 table tRfl: 1 Prescriptions as of 03/03/2020 Sig: HYDROXYZINE HCL 25 MG TABLET Take 1-2 tablets by mouth jaime* ASPIRIN 81 MG CHEWABLE TABLET Take 1 tablet by mouth once d* FLUTICASONE PROPIONATE 50 MCG* Use 1 Clemons in each nostril d * CHOLECALCIFEROL (VITAMIN D3) * Take 1 capsule by mouth as di * RANITIDINE 150 MG TABLET Take 150 mg by mouth twice da* ROLAIDS EXTRA STRENGTH ORAL Take by mouth. 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] 12/23/2008 Breast cyst [N60.09] 07/19/2009 08/23/2014 Actinic Keratoses: Premalignant AK's (Bowenoid *03/01/2012 Solar lentigines [L81.4] 03/01/2012 Melanocytic nevi of upper extremity or shoulder*03/01/2012 Melanocytic nevus of lower extremity [D22.70] 03/01/2012 Actinic skin damage [L57.8] 03/01/2012 Abnormal mammogram, unspecified [R92.8] 06/23/2012 4 Vitamin D deficiency [E55.9] 09/07/2013 Fibrocystic breast [N60.19] 09/14/2014 Anxiety and depression [F41.9, F32.9] 03/03/2015 Prescriptions ordered this encounter Disp Refills Start End HYDROXYZINE HCL 25 MG TABLET 30 t* 1 03/03/2020 Route: ORAL Sig: Take 1-2 tablets by mouth every 6 hours as needed for I tching/Rash or Anxiety. Medications Discontinued During This Encounter hydrOXYzine HCl (ATARAX) 25 mg tablet 30 t* 1 11/03/2018 020 Class: Call Rx Route: ORAL Sig: Take 1-2 tablets by joseph th every 6 hours as needed for Itching/Rash or Anxiety. Disc: Reason for discontinue is not on file. escitalopram oxalate (LEXAPRO) 10 mg* 30 t* 5 08/30/20172019 Route: ORAL Sig: Take 1 tablet by mouth once daily. Disc: Discontinued by Patient hydroCHLOROthiazide (HYDRODIURIL, ES* 60 t* 2 10/31/2018 020 Route: ORAL Sig: Take 2 tablets by mouth once daily. Disc: Course of therapy completed cephALEXin (KEFLEX) 500 mg capsule 40 c* 0 07/04/2018 03/03/2020 Class: Print RX Route: ORAL Sig: Take 2 capsules by mouth twice daily. Disc: Course of therapy completed ondansetron (ZOFRAN) 4 mg tablet 06/27/2018 03/03/2020 Class: Historical Med Sig: Disc: Course of therapy completed Omeprazole 20 mg TbEC 30 t* 2 09/03/2016 03/03/2020 Route: ORAL Sig: Take 20 mg by mouth once daily. Disc: Course of therapy completed Cosign accepted by ILEANA ROBERSON MD[[id number]] on 09/03/20 16 1:16 PM Encounter Status:Closed by SEA MASON III, MD on 03/03/20 office visit: breast cyst aspiration/ di scuss testing on 2017-08-17 Documentation of Done Invalid 08-17-2017 [facility] Surgical current medications Interpretation Code 08-17-2017 [facility] (procedure) ([id number]) Fall risk No Invalid 08-17-2017 [facility] Lazaro gical assessment Interpretation Code 7 [facility] ([id number]) Protein mass conc yes Invalid 08-17-2017 [facility] Surgical Interpretation Code 08-17-2017 [facility] ([id number]) Protein mass conc Done Invalid 08-17-2017 [facility] Surgical Interpretation Code 08-17-2017 [facility] ([id number]) Smoking cessation yes Invalid 08-17-2017 [facility] Surgical education Interpretation Code 08-17-2017 [facility] (procedure) ([id number]) Tobacco smoking Never Invalid 08-17-2017 - [facility] Surgical status [facility] Interpretation Code 08-17-20 17 [facility] ([id number]) Tobacco smoking Current every Invalid 08-17-2017 [facility] Surgical status [facility] day smoker Interpretation Code 017 [facility] ([id number]) Tobacco use [facility] Current every Invalid [address] [place] [address] Surgical day smoker Interpretation Code 7 [facility] ([id number]) office visit: ruq pain on 2017-07-17 Documentation of Done Invalid 07-17-2017 [facility] Surgical current medications Interpretation Code 07-17-2017 [facility] (procedure) ([id number]) Documentation of T Invalid 07-17-2017 [facility] Surgical current medications Interpretation Code 07-17-2017 [facility] (procedure) (51130) Fall risk No Invalid 07-17-2017 - [facility] Lazaro gical assessment Interpretation Code 7 [facility] ([id number]) Protein mass conc yes Invalid 07-17-2017 - [facility] Surgical Interpretation Code 07-17-2017 [facility] (09615) Protein mass conc Done Invalid 07-17-2017 - [facility] Surgical Interpretation Code 07-17-2017 [facility] (54310) Smoking cessation yes Invalid 07-17-2017 - [facility] Surgical education Interpretation Code 07-17-2017 [facility] (procedure) (43249) Tobacco smoking Current every Invalid 07-17-2017 - [facility] Surgical status [facility] day smoker Interpretation Code 017 [facility] ([id number]) Tobacco smoking Never Invalid 07-17-2017 - [facility] Surgical status [facility] Interpretation Code 07-17-20 17 [facility] (81688) Tobacco use [facility] Current every Invalid - [facility] Surgical day smoker Interpretation Code 7 [facility] (15865) Vital Signs Vital Sign Description Value / Unit Date Location The following section is limited to 5 en tries per type and includes entries from the following time range: 20170717 - 20170629 0. BMI (Body Mass Index) 21.09 kg/m2 07-17-2017 - 07-17-2017 [facility] ([id number]) Body Temperature 98.4 [degF] 07-17-2017 - 07-17-2017 [facility] ([id number]) BP Diastolic 73 mm[Hg] 07-17-2017 - 07-17-2017 [facility] (84276) BP Systolic 113 mm[Hg] 07-17-2017 - 07-17-2017 [facility] (49329) Height 167.64 cm 07-17-2017 - 07-17-2017 [facility] ([id number]) Pulse (Heart Rate) 90 /min 07-17-2017 - 07-17-2017 [facility] (24807) Respiratory Rate 18 /min 07-17-2017 - 07-17-2017 [facility] ([id number]) Weight 59.29 kg 07-17-2017 - 07-17-2017 [facility] ([id number]) Procedures Procedure Name Date Provider Location Fine needle aspiration 08-17-2017 - Monty Mason MD [facility] with imaging guidance 08-17-2017 ([id number]) Plan of Treatment Plan Description Date Location Appointment Appointment 08-17-2017 - [facility] Surgical 08-17-2017 [facility] (4469 1) Appointment Appointment 08-09-2017 - [facility] Surgical 08-09-2017 [facility] (4469 1) Colonoscopy Colonoscopy 07-17-2017 - [facility] Surgical 07-17-2017 [facility] (4469 1) EGD; diagnostic EGD; diagnostic 07-17-2017 - [facility] Surgical 07-17-2017 [facility] (4469 1) NM HIDA Scan with EF NM HIDA Scan with EF 07-17-2017 - [facility] Merr[facility] rgical 07-17-2017 [facility] (4469 1) Mammogram, Diagnostic, Mammogram, Diagnostic, 07-17-2017 - [facility] Surgical both breasts both breasts 07-18-2017 [facility] (4469 1) Mammogram, Screening, Mammogram, Screening, 07-17-2017 - [facility] Surgical both breasts both breasts 07-17-2017 [facility] (4469 1) US Breast(s) US Breast(s) 07-17-2017 - [facility] Surgical 07-17-2017 [facility] ([id number] 1) Appointment Appointment 07-17-2017 - [facility] Surgical 07-17-2017 [facility] (4469 1) Colonoscopy Colonoscopy 07-17-2017 - [facility] Surgical 07-17-2017 [facility] (4469 1) NM HIDA Scan with EF NM HIDA Scan with EF 07-17-2017 - [facility] rgical 07-17-2017 [facility] (4469 1) Mammogram, Diagnostic, Mammogram, Diagnostic, 07-17-2017 - [facility] Surgical both breasts both breasts 07-18-2017 [facility] (4469 1) Mammogram, Screening, Mammogram, Screening, 07-17-2017 - [facility] Surgical both breasts both breasts 07-17-2017 [facility] (4469 1) EGD; diagnostic EGD; diagnostic 07-17-2017 - [facility] Surgical 07-17-2017 [facility] (4469 1) US Breast(s) US Breast(s) 07-17-2017 - [facility] Surgical 07-17-2017 [facility] (4469 1) Summary Purpose Family History No Family History Records Found Advance Directives No Advanced Directives Records Found Additional Source Comments FOR RECORDS PERTAINING TO PATIENTS WHO ARE OR HAVE BEEN ENROLLED IN A CHEMICAL DEPENDENCY/SUBSTANCE ABUSE PROGRAM, SOME INFORMATION MAY BE OMITTED. This clinical summary was aggregated from multiple sources. Caution should be exercised in using it in the provision of clinical care. This summary normalizes information from multiple sources, and as a consequence, information in this document may materially changethe coding, format and clinical context of patient data. In addition, data may be omittedin some cases. CLINICAL DECISIONS SHOULD BE BASED ON THE PRIMARY CLINICAL RECORDS. [facility] provides no warranty or guarantee of the accuracy or completeness of information in this document. UNRECOGNIZED CONTENT PROVIDED BELOW FOR UNRECOGNIZED SECTION INFORMATION SOURCE DATE CREATED AUTHOR AUTHOR'S ORGANIZATIO N 04/06/2020 [facility] Hector lucio
== END ==
PROVIDERS: Referring Provider Obstetrics & Gynecology; Visit Provider Obstetrics & Gynecology
DX: Z12.31 Encounter for screening mammogram for malignant neoplasm of breast (principal)
CPT/HCPCS: 77063; 77067

== ENCOUNTER → 2022-05-28 | Outpatient (CLI) | payer BC, SELFPAY ==
--- NOTE | 2022-05-28 13:08 | BI_ITS ---
MAMMOGRAPHY - BILATERAL SCREENING 3-D TOMOSYNTHESIS REASON FOR EXAM: Female, 52 years old. Annual screening mammogram. PERTINENT HISTORY: History of bilateral excisional breast biopsies, left stereotactic biopsy in 07/17/2012, left breast aspirations in 2010 and 2014. TECHNIQUE: 2-D mammograms and 3-D Tomosynthesis of the breast (s) were performed. CAD was performed. COMPARISON: 04/06/2020, 08/16/2017. FINDINGS: The breast composition is heterogeneously dense that can obscure small breast masses. Stable scattered benign calcifications and lymph nodes. No dense spiculated masses or suspicious microcalcifications are identified. No architectural distortion is identified. There is no skin thickening or retraction. BI/SCRN MAMM (CAD)W/SARAH BILAT IMPRESSION: No interval change and no mammographic signs of malignancy. Routine yearly mammograms recommended. ASSESSMENT CATEGORY: BIRADS Category 2: Benign. A letter regarding these results will be sent to the patient by the facility within 30 days. FOLLOW UP RECOMMENDATION: Yearly follow up mammogram recommended. (A) Approximately 10% of breast cancers are not detected by mammography. A normal mammogram should not delay biopsy of a clinically suspicious abnormality. Electronically Signed: Matthew Oliver MD at 10:17 EDT ,
== END | disposition home or self-care (01) ==
LOC: OPBI 13:05
PROVIDERS: PCP Family Medicine; Visit Provider Family Medicine
DX: Z12.31 Encounter for screening mammogram for malignant neoplasm of breast (principal)
CPT/HCPCS: 77063; 77067

== ENCOUNTER → 2022-07-06 | Outpatient (CLI) | payer BC, SELFPAY ==
[2022-07-06 10:21] LABS: Absolute Lymphocyte Count 1.65 X10^3/uL (0.83-4.51); Absolute Neutrophil Count 3.5 X10^3/uL (2.0-7.7); Basophil# 0.07 X10^3/uL; Basophil% 1.1 % (0-1); Eosinophil# 0.45 X10^3/uL; Eosinophils% 6.9 % (0-5); Hemoglobin 13.6 g/dL (12.0-15.0); Lymphocyte # 1.65 X10^3/ul (0.83-4.51); Lymphocyte % 25.4 % (19-41); Mean Corp Hgb Conc 33.2 g/dL (32-36); Mean Corpuscular Hgb 31.7 pg (27.0-32.0); Mean Corpuscular Volume 95.6 fL (81-99); Mean Platelet Vol. 10.6 fl (6.2-12.0); Monocyte# 0.78 X10^3/uL; NRBC Flagged by Analyzer 0 % (0-5); Neutrophil # 3.53 X10^3/uL (2.7-7.7); Neutrophil % 54.3 % (47-70); Platelet Count 421 K/mm3 (150-450); RBC Distribution Width CV 12.7 % (11.6-14.6); RBC Distribution Width SD 44.6 fl (35.1-43.9); Red Blood Count 4.29 M/mm3 (4.2-5.4); White Blood Count 6.5 K/mm3 (4.4-11.0)
[2022-07-06 10:31] LABS: Erythrocyte Sedimentation Rate 6 mm/hr (0-30)
[2022-07-06 10:50] LABS: ALB/GLOB Ratio 1.2 RATIO (0.9-2.4); AST(SGOT) 15 U/L (15-37); Alanine Aminotransfer ALT/SGPT 26 U/L (13-56); Albumin, Serum 4.1 g/dL (3.2-5.0); Alkaline Phosphatase 87 U/L (45-117); Anion Gap 6 (5-15); BUN 17 mg/dL (7-18); BUN/Creat Ratio 20.5 RATIO (10-20); CPK Total, Creatine Kinase 81 U/L (26-192); CRP < 2.90 mg/L (0.0-3.0); Calcium,Total 9.3 mg/dL (8.5-10.1); Chloride 104 mmol/L (98-107); Creatinine, Serum 0.83 mg/dL (0.55-1.02); EST Glomerular Filtration Rate 76 mL/min (>60); Est Glom Filt Rate - Afr Amer 92 mL/min (>60); Globulin 3.5 g/dL (2.2-4.2); Glucose 72 mg/dL (74-106); LDH 169 U/L (84-246); Potassium 3.8 mmol/L (3.5-5.1); Protein, Total 7.6 g/dL (6.4-8.2); Sodium Level 139 mmol/L (136-145)
[2022-07-09 15:07] LABS: Endomysial Antibody IgA Positive (Negative)
[2022-07-10 15:13] LABS: Immunoglobulin A 111 mg/dL (87-352); t-Transglutaminase IgA 14 U/mL (0-3)
[2022-07-11 11:50] LABS: Pancreatic Elastase, Fecal 227 (>200)
[2022-07-12 11:09] LABS: Calprotectin, Stool <16 ug/g (0-120); Fats, Neutral Normal (.); Fats, Total Normal (.)
[2022-07-13 13:07] LABS: Alpha-1-Globulins 0.2 g/dL (0.0-0.4); Alpha-2-Globulins 0.7 g/dL (0.4-1.0); Complement C3 137 mg/dL (82-167); Cytoplasmic Ab (C-ANCA) <1:20 titer (Neg:<1:20); Immunoglobulin A 109 mg/dL (87-352); Immunoglobulin E 20 IU/mL (6-495); Immunoglobulin G 902 mg/dL (586-1602); Immunoglobulin M 33 mg/dL (26-217)
[2022-07-13 14:54] LABS: CCP IgG Antibodies 4 units (0-19); Complement CH50 > 60 U/mL (>41); Perinuclear Ab (P-ANCA) <1:20 titer (Neg:<1:20)
[2022-07-13 19:07] LABS: Anti-Centromere B Ab <0.2 AI (0.0-0.9); Anti-Chromatin <0.2 AI (0.0-0.9); Anti-Jo <0.2 AI (0.0-0.9); Anti-Scleroderma-70 AB <0.2 AI (0.0-0.9); Beef <0.10 kU/L (Class 0); Corn <0.10 kU/L (Class 0); Egg, Whole <0.10 kU/L (Class 0); Milk (Cow) <0.10 kU/L (Class 0); Peanut <0.10 kU/L (Class 0); Pork <0.10 kU/L (Class 0); RNP Ab 0.3 AI (0.0-0.9); SJOGREN'S Anti-SS-A test < 0.2 AI (0.0-0.9); SJOGREN'S Anti-SS-B test < 0.2 AI (0.0-0.9); Smith Ab <0.2 AI (0.0-0.9); Soybean <0.10 kU/L (Class 0); Wheat <0.10 kU/L (Class 0)
[2022-07-14 07:16] LABS: Anti-dsDNA Ab 1 IU/mL (0-9); Chocolate <0.10 kU/L (Class 0)
== END | disposition home or self-care (01) ==
LOC: LAB 08:57
PROVIDERS: PCP Family Medicine; Referring Provider Internal Medicine Gastroenterology; Visit Provider Internal Medicine Gastroenterology
DX: R10.9 Unspecified abdominal pain (principal); K58.9 Irritable bowel syndrome, unspecified
CPT/HCPCS: 36415; 80053; 82550; 82653; 82705; 82784; 82785; 83516; 83615; 83630; 83993; 84165; 85025; 85652; 86003; 86005; 86140; 86160; 86162; 86200; 86225; 86235; 86255; 86256; 86334

== ENCOUNTER 2022-09-11 11:25 | Day surgery (SDC) | payer BC, SELFPAY ==
[2022-09-11 12:08] VITALS: BP 99/65; PULSE 64; RESP 16; TEMP 37.1; O2SAT 99; BMI 25.5
[2022-09-11] MEDS: Lactated Ringers 1,000 ML 15 ML IV (12:12)
--- NOTE | 2022-09-11 12:45 | EGD_PTH ---
PATIENT: LANI DUARTE LOC: EN U#:[id number] AGE/SX: 52/F ROOM: RE09/11/[address]: Dr. Srini Freitas DO : 1970 BED: DIS: 09/11/2022 SPEC #: [id number] RECD: 09/11/22 14:30 STATUS: CARLITOS MARGARITA #: [id number] TAVON: 09/11/22 12:[address]: Srini Freitas DEPT: SURGICAL PATHOLOGY RECD BY: Nessa Johansen ENTERED: 09/12/22 11:38 SP TYPE: EGD BIOPSY OT DR: Dr. Arian Dallas MD Tissues: A - Duodenum, NOS B - Esophagus, NOS C - Ileum, NOS Procedures: Special Stain Group II Surgery Specimen Level IV Alcian Blue/PAS (control) HEADER OPERATION: Colonoscopy, EGD (MAC), biopsies PRE-OP DIAGNOSIS: Dysphagia, abdominal pain, constipation TISSUE SUBMITTED: A. Duodenum biopsy, B. Distal esophagus biopsy, C. Terminal ileum biopsy MICROSCOPIC DIAGNOSIS A. Duodenum biopsy: Fragments of duodenal mucosa, no pathologic diagnosis. B. Distal esophagus biopsy: Fragments of gastroesophageal mucosa with chronic inflammation. Intestinal metaplasia (goblet cell metaplasia) not identified. See comment. C. Terminal ileum biopsy: Fragments of small intestinal mucosa, no pathologic diagnosis. /SJ 09/13/22 COMMENT B. Alcian blue/PAS stain with matched control supports the above diagnosis. MICROSCOPIC DESCRIPTION Slides are reviewed. GROSS DESCRIPTION Received is one container labeled with the patient name and designated duodenum. The specimen consists of multiple irregular fragments of light peace soft tissue that in aggregate measure 0.6 x 0.6 x 0.1 cm. The specimen is totally submitted in one cassette. Received is one container labeled with the patient name and designated distal esophgaus. The specimen consists of multiple irregular fragments of light peace soft tissue that in aggregate measure 1 x 0.3 x 0.1 cm. The specimen is totally submitted in one cassette. Received is one container labeled with the patient name and designated terminal ileum. The specimen consists of multiple irregular fragments of light peace soft tissue that in aggregate measure 1.5 x 0.3 x 0.1 cm. The specimen is totally submitted in one cassette. /RAVI:robb 09/12/2022 TC:3 CPT:84254 x3, 50311
--- NOTE | 2022-09-11 12:55 | PCM.HP.BLA ---
History and Physical Date of Admission: 09/11/22 52 F who presents to the office today for Initial consult. Alexa established with this clinic 07.06.22 with referral from PCP for reflux and dysphagia and a change in bowel habit. Epigastric pain with bloating has been present for many years with increased intensity and frequency in the last year. She is unable to identify a trigger. Feels stress and anxiety are a potential trigger. A rotating massager or abdominal binder will help with the discomfort. OTC antacids are not helpful. Does not wake her from sleep. This is independent of bowels. Constipation is also a difficulty in which she will go up to two weeks without BM; uses stool softeners that are minimally helpful. When her bowels do move it is a mix of hard stools and liquid. She will then have sporadic movements. She had three pregnancies with three C-sections; two live births. History of esophageal dilation in her 30?s and was told she would need regular dilation; currently having difficulty with swallowing a couple times a month with soft foods. 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 ROS Const Constitutional: No anorexia, fatigue, fever(s), weight change or sleep problems Eyes Eyes: No change in vision ENT ENT: No abnormal hearing, difficulty swallowing, mouth lesions, tongue swelling or throat swelling Resp Respiratory: No cough or shortness of breath Cardio Cardiology: No chest pain at rest, chest pain with exertion, shortness of breath or dyspnea on exertion Gastro GI: No difficulty swallowing Genitourinary-Female: No difficulty urinating or burning urination Musc Musculoskeletal: No joint pain, joint swelling, muscle weakness or decreased muscle mass Skin Skin: No hair loss in leg, yellowing of the eye, itchy eyes, rash, skin ulcer or skin swelling Neuro Neurology: No abnormal hearing, abnormal movements, confusion, unsteady gait/balance or memory loss Psych Psychiatric: No anxiety, No confusion and No memory loss Endo Endocrine: No fatigue or weight change Aller/Imm Allergy/Immunologic: No itchy eyes, throat swelling or tongue swelling Sreedhar/Lymp Hematologic/Lymphatic: No easy bleeding, easy bruising or enlarged lymph nodes Exam Const General: cooperative and comfortable Nutritional Appearance: average body habitus and well nourished HENMT Head: normal to inspection Ears: hearing grossly normal bilaterally Nose: external nose normal Face and sinus: normal facial exam Mouth: oral mucosae normal Throat: posterior oropharynx normal Eyes General: appearance normal, both eyes and all related structures Neck Neck: normal visual inspection Chest Chest palpation & inspection: normal inspection of the chest and normal palpation of entire chest wall Resp Effort & Inspection: normal respiratory effort Auscultation: Bilateral: Clear to Auscultation Cardio Palpation: normal PMI Rate: regular rate Rhythm: regular rhythm GI Inspection: normal to inspection Auscultation: normal bowel sounds Percussion: normal to percussion Palpation: no hepatosplenomegaly Skin General: no rashes or lesions noted Neuro General: patient alert Extrem General: normal to inspection Psych Affect: normal affect Quality Reporting Tobacco Screening ([facility] 138) Smoking Status: Former smoker Assessment and Plan Assessment and Plan (1) Constipation: ?Status:?Chronic ?Plan: Chronic idiopathic constipation possibly secondary to slow transit constipation versus pelvic floor dysfunction.? She will undergo colonoscopy for evaluation of the lower GI tract.? She may also need a sits marker test and radiologic evaluation of all external structures that may be contributing to her constipation with a CT scan abdomen pelvis with p.o. and IV contrast. (2) Abdominal pain: ?Status:?Chronic ?Plan: Abdominal this time will be evaluated for possible autoimmune disease affecting her GI tract.? She is ZEKE positive 1 out of 160 in which the diameter diagnosis would be lupus erythematosus, scleroderma, Sjogren's syndrome, celiac sprue.? Biochemical work-up to follow.? She will also get biopsies and optical evaluation of her upper GI tract for any structural abnormalities.? She may also need a gastric emptying study because of the bloating and issues that she has after eating certain foods. (3) Dysphagia: ?Status:?Chronic ?Plan: The differential diagnosis for esophageal dysphagia would be diffuse esophageal spasm, eosinophilic esophagitis, hiatal hernia, esophageal stricture or esophageal ring or esophageal web in the setting of her thrombocytosis.? We will evaluate upper GI tract and perform biopsies and possible motility study manometry plus or minus barium esophagram. ? ? ? Orders: Orders CRP Today R10.9 - Unspecified abdominal pain ? LDH Today R10.9 - Unspecified abdominal pain ? Erythrocyte Sed Rate Today R10.9 - Unspecified abdominal pain ? Allergen, Rast Food Profile Today R10.9 - Unspecified abdominal pain ? ANCA Today R10.9 - Unspecified abdominal pain ? Celiac Disease Profile Today R10.9 - Unspecified abdominal pain ? Immunoglobulin E Today R10.9 - Unspecified abdominal pain ? ZEKE Comprehensive Panel Today R10.9 - Unspecified abdominal pain ? Calprotectin, Stool Today R10.9 - Unspecified abdominal pain ? Fecal Fat, Qualitative Today R10.9 - Unspecified abdominal pain ? Stool Lactoferrin/WBC Today K58.9 - Irritable bowel syndrome without diarrhea, R10.9 - Unspecified abdominal pain ? Complement C3 Today R10.9 - Unspecified abdominal pain ? Complement C4 Today R10.9 - Unspecified abdominal pain ? CCP IgG Antibodies Today R10.9 - Unspecified abdominal pain ? Complement CH50 Today R10.9 - Unspecified abdominal pain ? BRYSON + Protein Elect, Serum Today R10.9 - Unspecified abdominal pain ? Pancreatic Elastase, Fecal Today R10.9 - Unspecified abdominal pain ? Comprehensive Metabolic Profil Today K59.00 - Constipation, unspecified, R10.9 - Unspecified abdominal pain, R13.10 - Dysphagia, unspecified ? CPK Total, Creatine Kinase Today K59.00 - Constipation, unspecified, R10.9 - Unspecified abdominal pain, R13.10 - Dysphagia, unspecified ? CBC W/Diff, Automated Today K59.00 - Constipation, unspecified, R10.9 - Unspecified abdominal pain, R13.10 - Dysphagia, unspecified ? I have examined the patient and the H&P has been reviewed. There are no clinical changes since date of exam.
[2022-09-11 13:35] VITALS: BP 96/58; BP 99/65; PULSE 60; RESP 16; TEMP 36.3; O2SAT 96
[2022-09-11 13:40] VITALS: BP 86/65; BP 99/65; PULSE 59; RESP 14; O2SAT 97
--- NOTE | 2022-09-11 13:40 | OP.CCLET_ITS ---
09/11/2022 Arian Dallas Re : Upper GI endoscopy procedure for Alexa Almazan Dear Celena This procedure was performed on Sunday, September 11, 2022. My impressions and recommendations are as follows: Impressions : - Non-severe reflux esophagitis. Biopsied. - Small hiatal hernia. - Chronic duodenitis. Biopsied. Recommendations : - Discharge patient to home. - Resume previous diet. - Continue present medications. - Await pathology results. My findings are described in the full procedure note, which is enclosed. If I can be of further assistance, please feel free to contact me at . Sincerely, Srini Freitas, 09/11/2022 1:40:07 PM This report has been signed electronically.
--- NOTE | 2022-09-11 13:40 | OP.EGD_ITS ---
Patient Name: Alexa Almazan Procedure Date: 09/11/2022 12:57 PM Date of : 1970 Age: 52 Procedure: Upper GI endoscopy Indications: Epigastric abdominal pain Providers: Srini Freitas DO Medicines: Monitored Anesthesia Care Patient Profile: This is a 52 year old female. Refer to note in patient chart for documentation of history and physical. Patient has symptoms of chronic abdominal cramping and chronic global abdominal pain. Complications: No immediate complications. Procedure: Pre-Anesthesia Assessment: - Prior to the procedure, a History and Physical was performed, and patient medications and allergies were reviewed. The patient is competent. The risks and benefits of the procedure and the sedation options and risks were discussed with the patient. All questions were answered and informed consent was obtained. Patient identification and proposed procedure were verified by the physician in the pre-procedure area. Mental Status Examination: alert and oriented. Airway Examination: normal oropharyngeal airway and neck mobility. Respiratory Examination: clear to auscultation. CV Examination: normal. Prophylactic Antibiotics: The patient does not require prophylactic antibiotics. Prior Anticoagulants: The patient has taken no previous anticoagulant or antiplatelet agents. ASA Grade Assessment: II - A patient with mild systemic disease. After reviewing the risks and benefits, the patient was deemed in satisfactory condition to undergo the procedure. The anesthesia plan was to use monitored anesthesia care (MAC). Immediately prior to administration of medications, the patient was re-assessed for adequacy to receive sedatives. The heart rate, respiratory rate, oxygen saturations, blood pressure, adequacy of pulmonary ventilation, and response to care were monitored throughout the procedure. The physical status of the patient was re-assessed after the procedure. After obtaining informed consent, the endoscope was passed under direct vision. Throughout the procedure, the patient's blood pressure, pulse, and oxygen saturations were monitored continuously. The colonoscope was introduced through the mouth, and advanced to the second part of duodenum. The upper GI endoscopy was accomplished without difficulty. The patient tolerated the procedure well. Scope In: 1:07:02 PM Scope Out: 1:13:51 PM Total Procedure Duration Time 0 hours 6 minutes 49 seconds Findings: Non-severe esophagitis with no bleeding was found 35 to 37 cm from the incisors. Biopsies were taken with a cold forceps for histology. Verification of patient identification for the specimen was done. Estimated blood loss was minimal. A small hiatal hernia was present. No other significant abnormalities were identified in a careful examination of the stomach. Diffuse moderate inflammation characterized by congestion (edema), erosions and granularity was found in the first portion of the duodenum, in the second portion of the duodenum and in the third portion of the duodenum. Biopsies were taken with a cold forceps for histology. Verification of patient identification for the specimen was done. Estimated blood loss was minimal. Impression: - Non-severe reflux esophagitis. Biopsied. - Small hiatal hernia. - Chronic duodenitis. Biopsied. Recommendation: - Discharge patient to home. - Resume previous diet. - Continue present medications. - Await pathology results. Procedure Code(s): --- Professional --- 66108, Esophagogastroduodenoscopy, flexible, transoral; with biopsy, single or multiple CPT copyright 2017 [employer]. All rights reserved. The codes documented in this report are preliminary and upon business analysis analyst review may be revised to meet current compliance requirements. Srini Freitas DO 09/11/2022 1:40:07 PM This report has been signed electronically. Number of Addenda: 0 Note Initiated On: 09/11/2022 12:57 PM
--- NOTE | 2022-09-11 13:43 | OP.COLON_ITS ---
Patient Name: Alexa Almazan Procedure Date: 09/11/2022 1:14 PM Date of : 1970 Age: 52 Procedure: Colonoscopy Indications: Abdominal pain, Generalized abdominal distress Providers: Srini Freitas DO Medicines: Monitored Anesthesia Care Patient Profile: This is a 52 year old female. Refer to note in patient chart for documentation of history and physical. Patient has symptoms of chronic abdominal cramping and chronic global abdominal pain. Last Colonoscopy: date unknown. Unable to locate last colonoscopy report. Complications: No immediate complications. Procedure: Pre-Anesthesia Assessment: - Prior to the procedure, a History and Physical was performed, and patient medications and allergies were reviewed. The patient is competent. The risks and benefits of the procedure and the sedation options and risks were discussed with the patient. All questions were answered and informed consent was obtained. Patient identification and proposed procedure were verified by the physician in the pre-procedure area. Mental Status Examination: alert and oriented. Airway Examination: normal oropharyngeal airway and neck mobility. Respiratory Examination: clear to auscultation. CV Examination: normal. Prophylactic Antibiotics: The patient does not require prophylactic antibiotics. Prior Anticoagulants: The patient has taken no previous anticoagulant or antiplatelet agents. ASA Grade Assessment: II - A patient with mild systemic disease. After reviewing the risks and benefits, the patient was deemed in satisfactory condition to undergo the procedure. The anesthesia plan was to use monitored anesthesia care (MAC). Immediately prior to administration of medications, the patient was re-assessed for adequacy to receive sedatives. The heart rate, respiratory rate, oxygen saturations, blood pressure, adequacy of pulmonary ventilation, and response to care were monitored throughout the procedure. The physical status of the patient was re-assessed after the procedure. After I obtained informed consent, the scope was passed under direct vision. Throughout the procedure, the patient's blood pressure, pulse, and oxygen saturations were monitored continuously. The colonoscope was introduced through the anus and advanced to the terminal ileum. The colonoscopy was performed without difficulty. The patient tolerated the procedure well. The quality of the bowel preparation was adequate. Scope In: 1:16:24 PM Scope Withdrawal Time 0 hours 8 minutes 44 seconds Scope Out: 1:29:20 PM Total Procedure Duration Time 0 hours 12 minutes 56 seconds Findings: The perianal and digital rectal examinations were normal. Semi-liquid stool was found in the recto-sigmoid colon, in the sigmoid colon, at the hepatic flexure and in the cecum, interfering with visualization. Fluid aspiration was performed. A patchy area of the terminal ileum was congested. Biopsies were taken with a cold forceps for histology. Verification of patient identification for the specimen was done. Estimated blood loss was minimal. Impression: - Stool in the recto-sigmoid colon, in the sigmoid colon, at the hepatic flexure and in the cecum. Fluid aspiration performed. - Congested mucosa in the terminal ileum. Biopsied. Recommendation: - Written discharge instructions were provided to the patient. - The signs and symptoms of potential delayed complications were discussed with the patient. - Patient has a contact number available for emergencies. - Return to normal activities tomorrow. - Resume previous diet. - Continue present medications. - Await pathology results. - Repeat colonoscopy in 5 years for surveillance. Procedure Code(s): --- Professional --- 92428, Colonoscopy, flexible; with biopsy, single or multiple CPT copyright 2017 [employer]. All rights reserved. 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 Srini Freitas DO 09/11/2022 1:43:11 PM This report has been signed electronically. Number of Addenda: 0 Note Initiated On: 09/11/2022 1:14 PM
--- NOTE | 2022-09-11 13:43 | OP.CCLET_ITS ---
09/11/2022 Arian Dallas Re : Colonoscopy procedure for Alexa Almazan Dear Celena This procedure was performed on Sunday, September 11, 2022. My impressions and recommendations are as follows: Impressions : - Stool in the recto-sigmoid colon, in the sigmoid colon, at the hepatic flexure and in the cecum. Fluid aspiration performed. - Congested mucosa in the terminal ileum. Biopsied. Recommendations : - Written discharge instructions were provided to the patient. - The signs and symptoms of potential delayed complications were discussed with the patient. - Patient has a contact number available for emergencies. - Return to normal activities tomorrow. - Resume previous diet. - Continue present medications. - Await pathology results. - Repeat colonoscopy in 5 years for surveillance. My findings are described in the full procedure note, which is enclosed. If I can be of further assistance, please feel free to contact me at . Sincerely, Srini Freitas, 09/11/2022 1:43:11 PM This report has been signed electronically.
[2022-09-11 13:45] VITALS: BP 82/52; BP 99/65; PULSE 57; RESP 14; O2SAT 97
[2022-09-11 13:50] VITALS: BP 87/54; BP 99/65; PULSE 66; RESP 14; TEMP 36.3; O2SAT 98
[2022-09-11 14:13] VITALS: BP 99/65
== END 2022-09-11 14:19 | disposition home or self-care (01) ==
LOC: EN 11:28 → AC 11:31
PROVIDERS: PCP Family Medicine; Referring Provider Family Medicine; Visit Provider Internal Medicine Gastroenterology
PROC: 0DJD8ZZ Inspection of Lower Intestinal Tract, Via Natural or Artificial Opening Endoscopic (ICD-10-PCS; CPT 45378; principal; 2022-09-11 12:40)
DX: R13.10 Dysphagia, unspecified (principal); M34.9 Systemic sclerosis, unspecified; M35.00 Sjogren syndrome, unspecified; K29.80 Duodenitis without bleeding; K21.00 Gastro-esophageal reflux disease with esophagitis, without bleeding; K44.9 Diaphragmatic hernia without obstruction or gangrene; R10.9 Unspecified abdominal pain; G89.29 Other chronic pain; K90.0 Celiac disease; Z87.891 Personal history of nicotine dependence
CPT/HCPCS: 45380; 43239; 88305; 88313; J7120; J2405

== ENCOUNTER → 2022-10-11 | Outpatient (CLI) | payer BC, SELFPAY ==
[2022-10-11 18:22] LABS: Thyroid Stim Hormone (TSH) 2.64 uIU/mL (0.358-3.74)
== END | disposition home or self-care (01) ==
LOC: LAB 15:52
PROVIDERS: PCP Family Medicine; Visit Provider Internal Medicine Cardiovascular Disease
DX: R07.9 Chest pain, unspecified (principal); R00.2 Palpitations; E78.2 Mixed hyperlipidemia
CPT/HCPCS: 36415; 84443

== ENCOUNTER → 2022-11-09 | Outpatient (CLI) | payer BC, SELFPAY ==
--- NOTE | 2022-11-09 11:49 | ECHOD_ITS ---
Reason For Study: PALPITATIONS Procedure This was a 2D Doppler, Color Flow transthoracic echocardiogram. The exam was of adequate technical quality. Exam performed in department. Left Ventricle Normal LV size. Left ventricular systolic function is normal. The estimated ejection fraction is 65 %. No evidence for diastolic dysfunction. No regional wall motion abnormalities noted. Right Ventricle Normal RV size. Normal systolic function. Atria Normal left atrium. Normal right atrium. No doppler evidence for ASD. Mitral Valve There is no mitral annular calcification. Normal mitral valve. Trivial mitral valve insufficiency. Tricuspid Valve Normal tricuspid valve. Trivial tricuspid valve insufficiency. Unable to estimate RV systolic pressure due to insufficient tricuspid regurgitant envelope. Aortic Valve Trisinus/trileaflet aortic valve. Normal aortic valve. Pulmonic Valve The pulmonic valve is not well visualized. Great Vessels Normal sized aortic root. Pericardium/Pleural No pericardial effusion. MMode/2D Measurements & Calculations LVIDd: 5.0 cm IVSd: 0.52 cm Ao root diam: 2.9 cm LVIDs: 3.5 cm LVPWd: 0.64 cm FS: 30.7 % LAV(MOD-bp): 66.3 ml LVAd ap4: 21.4 cm2 SV(MOD-sp4): 29.6 ml LAV(MOD-bp) Indexed: 38.3 ml/m2 LVLd ap4: 7.3 cm LAV(MOD-sp2): 65.2 ml EDV(MOD-sp4): 54.5 ml LAV(MOD-sp4): 63.2 ml EDV(sp4-el): 53.1 ml LVAs ap4: 12.8 cm2 LVLs ap4: 6.2 cm ESV(MOD-sp4): 24.9 ml ESV(sp4-el): 22.4 ml EF(MOD-sp4): 54.3 % EF(sp4-el): 57.8 % SV(sp4-el): 30.7 ml LA A4 area: 21.0 cm2 LA dimension(2D): 3.6 cm RA A4 area: 14.6 cm2 Time Measurements MV dec time: 0.20 sec Doppler Measurements & Calculations MV E max ja: 78.4 cm/sec Lat Peak E' Ja: 11.8 cm/sec Med Peak E' Ja: 10.3 cm/sec MV A max ja: 63.2 cm/sec E/E' lat: 6.7 E/E' med: 7.6 MV E/A: 1.2 MV V2 max: 77.4 cm/sec Ao V2 max: 125.1 cm/sec MV max P.4 mmHg MV dec slope: 417.7 cm/sec2 Ao max P.3 mmHg MV V2 mean: 53.5 cm/sec Ao V2 mean: 81.3 cm/sec MV mean P.2 mmHg Ao mean P.1 mmHg MV V2 VTI: 23.7 cm Ao V2 VTI: 27.5 cm AV (velocity ratio): 0.95 LV V1 max: 118.3 cm/sec PA V2 max: 78.1 cm/sec LV V1 max P.6 mmHg PA V2 mean: 59.1 cm/sec LV V1 mean P.6 mmHg LV V1 mean: 74.5 cm/sec LV V1 VTI: 26.2 cm ECHO/Echo Complete Interpretation Summary Left ventricular systolic function is normal. The estimated ejection fraction is 65 %. Trivial mitral valve insufficiency. Trivial tricuspid valve insufficiency. Unable to estimate RV systolic pressure due to insufficient tricuspid regurgita nt envelope. No evidence for diastolic dysfunction. Ordering Physician: Brian Britt Referring Physician: DAVI NUNO Performed By: Trena Ying RCS
--- NOTE | 2022-11-09 12:45 | STRESSREP ---
Stress Test Report Date: 11-09-2022 Procedure: Exercise tolerance test Indications: Chest pain; palpitations Consent: Per the patient Procedure: The patient exercised on a Ruddy protocol for 9 minutes completing Stage III achieving a peak heart rate of 146 bpm (87% predicted maximal heart rate) with a resting blood pressure of 108/78 mmHg and a peak blood pressure 136/84 mmHg and a peak MET capacity of approximately 10 MET's. The baseline ECG demonstrated normal sinus rhythm. The peak exercise ECG demonstrated no obvious ECG changes. There were no cardiac dysrhythmias pretest, during exercise, or recovery. The functional capacity was considered good. The patient had no complaint of chest discomfort during exercise or recovery. The examination was discontinued secondary to dyspnea. Impression: 1. Technically adequate (percent predicted maximal heart rate greater than 85%) exercise tolerance test 2. Peak exercise ECG with with no obvious ECG changes 3. There were no cardiac dysrhythmias during exercise or recovery This note was generated with [employer] software. It may contain incorrect words, spelling, and punctuation that were not noted in checking the note before signing.
== END | disposition home or self-care (01) ==
PROVIDERS: PCP Family Medicine; Visit Provider Internal Medicine Cardiovascular Disease
DX: R07.9 Chest pain, unspecified (principal); R00.2 Palpitations; R06.00 Dyspnea, unspecified; E78.2 Mixed hyperlipidemia
CPT/HCPCS: 93017; 93306

== ENCOUNTER → 2022-12-13 | Outpatient (CLI) | payer BC, SELFPAY ==
[2022-12-13 17:48] LABS: Erythrocyte Sedimentation Rate 3 mm/hr (0-30)
[2022-12-13 17:51] LABS: Vitamin B12 382 pg/mL (211-911); Vitamin D,25 Hydroxy 35.4 ng/mL
[2022-12-13 18:00] LABS: CRP, High Sensitivity Cardiac 0.89 mg/L; Free T3 2.7 pg/mL (2.18-3.98); Rheumatoid Factor < 10.0 IU/mL (<15); T4 Free Direct 0.98 ng/dL (0.76-1.46); Uric Acid 4.9 mg/dL (2.6-6.0)
[2022-12-15 22:13] LABS: CCP IgG Antibodies 9 units (0-19); Immunoglobulin A 108 mg/dL (87-352)
[2022-12-17 12:07] LABS: Anti-Centromere B Ab <0.2 AI (0.0-0.9); Anti-Chromatin <0.2 AI (0.0-0.9); Anti-Jo <0.2 AI (0.0-0.9); Anti-Scleroderma-70 AB <0.2 AI (0.0-0.9); RNP Ab 0.2 AI (0.0-0.9); SJOGREN'S Anti-SS-A test < 0.2 AI (0.0-0.9); SJOGREN'S Anti-SS-B test < 0.2 AI (0.0-0.9); Smith Ab <0.2 AI (0.0-0.9)
[2022-12-17 15:07] LABS: Endomysial Antibody IgA Negative (Negative)
[2022-12-17 19:22] LABS: Immunoglobulin A 105 mg/dL (87-352); t-Transglutaminase IgA 10 U/mL (0-3)
[2022-12-18 20:51] LABS: Anti-dsDNA Ab 1 IU/mL (0-9); Vitamin D 1,25-Dihydroxy 51.5 pg/mL (24.8-81.5)
== END | disposition home or self-care (01) ==
PROVIDERS: PCP Family Medicine; Visit Provider Internal Medicine Gastroenterology
DX: R10.9 Unspecified abdominal pain (principal); K21.9 Gastro-esophageal reflux disease without esophagitis
CPT/HCPCS: 36415; 82306; 82607; 82652; 82784; 83516; 84439; 84443; 84481; 84550; 85652; 86141; 86200; 86225; 86235; 86255; 86431

== ENCOUNTER → 2025-08-19 | Outpatient (CLI) | payer BC, SELFPAY ==
--- NOTE | 2025-08-19 13:06 | US_ITS ---
PROCEDURE: THYROID 08/19/2025 REASON FOR EXAM: CHECK FOR NODULES TECHNIQUE: Procedure Code: USTHY Modality: US Procedure: THYROID COMPARISON: None FINDINGS: Right thyroid lobe size: 4.6 cm x 1.5 cm 1.3 cm Left thyroid lobe size: 4.6 cm 1.4 cm 1.2 cm Isthmus: 0.1 cm Background parenchymal echotexture is heterogeneous. Nodules: No thyroid nodule seen. US/Thyroid IMPRESSION: Heterogeneous echotexture of both lobes of the thyroid gland with increased vas cularity. No focal nodule is seen. RECOMMENDATION: Based on most suspicious nodule. Nodule size = largest diameter Only evaluate nodule if =>5 mm. Growth > 20% in 2 dimensions = worsening. Follow up to 4 nodules. Recommend biopsy for no more than 2 nodules. Reading Location: [id number]
--- NOTE | 2025-08-19 13:06 | US_ITS ---
PROCEDURE: THYROID 08/19/2025 REASON FOR EXAM: CHECK FOR NODULES TECHNIQUE: Procedure Code: USTHY Modality: US Procedure: THYROID COMPARISON: None FINDINGS: Right thyroid lobe size: 4.6 cm x 1.5 cm 1.3 cm Left thyroid lobe size: 4.6 cm 1.4 cm 1.2 cm Isthmus: 0.1 cm Background parenchymal echotexture is heterogeneous. Nodules: No thyroid nodule seen. US/Thyroid IMPRESSION: Heterogeneous echotexture of both lobes of the thyroid gland with increased vas cularity. No focal nodule is seen. RECOMMENDATION: Based on most suspicious nodule. Nodule size = largest diameter Only evaluate nodule if =>5 mm. Growth > 20% in 2 dimensions = worsening. Follow up to 4 nodules. Recommend biopsy for no more than 2 nodules. Reading Location: [id number]
== END | disposition home or self-care (01) ==
LOC: US 13:06
PROVIDERS: PCP Family Medicine; Referring Provider Internal Medicine Endocrinology, Diabetes & Metabolism; Visit Provider Internal Medicine Endocrinology, Diabetes & Metabolism
DX: E05.20 Thyrotoxicosis with toxic multinodular goiter without thyrotoxic crisis or storm (principal)
CPT/HCPCS: 76536

== ENCOUNTER → 2025-08-31 | Outpatient (CLI) | payer BC, SELFPAY ==
[2025-08-31 17:02] LABS: Free T3 2.6 pg/mL (2.18-3.98)
== END | disposition home or self-care (01) ==
PROVIDERS: PCP Family Medicine; Referring Provider Internal Medicine Endocrinology, Diabetes & Metabolism; Visit Provider Internal Medicine Endocrinology, Diabetes & Metabolism
DX: E05.90 Thyrotoxicosis, unspecified without thyrotoxic crisis or storm (principal)
CPT/HCPCS: 36415; 84439; 84443; 84481

== ENCOUNTER → 2025-10-05 | Outpatient (CLI) | payer BC, SELFPAY ==
[2025-10-05 14:12] LABS: Free T3 2.4 pg/mL (2.18-3.98)
== END | disposition home or self-care (01) ==
LOC: LAB 12:45
PROVIDERS: PCP Family Medicine; Referring Provider Internal Medicine Endocrinology, Diabetes & Metabolism; Visit Provider Internal Medicine Endocrinology, Diabetes & Metabolism
DX: E05.90 Thyrotoxicosis, unspecified without thyrotoxic crisis or storm (principal)
CPT/HCPCS: 36415; 84439; 84443; 84481

== ENCOUNTER → 2025-10-27 | Outpatient (CLI) | payer BC, SELFPAY ==
[2025-10-27 15:08] LABS: AST(SGOT) 25 U/L (<=31); Alanine Aminotransfer ALT/SGPT 27 U/L (<=34); Albumin, Serum 4.5 g/dL (3.5-5.0); Alkaline Phosphatase 94 U/L (35-104); Anion Gap 8 (7-18); BUN 16 mg/dL (4-19); BUN/Creat Ratio 21.3 RATIO (10-20); Calcium,Total 9.4 mg/dL (7.6-11.0); Carbon Dioxide 27.4 mmol/L (20.0-29.0); Chloride 103 mmol/L (96-106); Free T3 2.8 pg/mL (2.18-3.98); Globulin 2.4 g/dL (2.2-4.2); Glucose 88 mg/dL (70-99); Potassium 4.2 mmol/L (3.5-5.1)
== END | disposition home or self-care (01) ==
LOC: LAB 13:54
PROVIDERS: PCP Family Medicine; Referring Provider Internal Medicine Endocrinology, Diabetes & Metabolism; Visit Provider Internal Medicine Endocrinology, Diabetes & Metabolism
DX: E05.90 Thyrotoxicosis, unspecified without thyrotoxic crisis or storm (principal); R21 Rash and other nonspecific skin eruption
CPT/HCPCS: 36415; 80053; 84439; 84443; 84481